=== PATIENT | female | born 1985 | race Caucasian/White ===

== ENCOUNTER 2016-11-09 20:31 | Emergency (ER) | payer OTHER ==
[~2016-11-09] VITALS: Ht 162.6 cm; Wt 103.0 kg
[2016-11-09 20:34] VITALS: Ht 162.6 cm; Wt 103.0 kg
[2016-11-09] MEDS ORDERED: ACETAMINOPHEN 500 MG TAB PO STA (21:43)
[2016-11-09] MEDS ORDERED: FAMOTIDINE 20 MG TAB PO ONE (22:00)
[2016-11-09 22:19] LABS: BASOPHIL # 0.1 10^3/ul (0.0-0.1); BASOPHILS % 0.4 % (0.0-2.0); EOSINOPHILS # 0.1 10^3/ul (0.0-0.5); HEMATOCRIT 37.1 % (37.0-47.0); HEMOGLOBIN 12.4 g/dl (12.0-16.0); LYMPHOCYTES # 2.8 10^3/ul (0.8-2.9); LYMPHOCYTES % 18.4 % (15.0-51.0); MEAN CORPUSCULAR HEMOGLOBIN 26.7 pg (29.0-33.0); MEAN CORPUSCULAR HGB CONC 33.3 g/dl (32.0-37.0); MEAN CORPUSCULAR VOLUME 80.1 fl (82.0-101.0); MEAN PLATELET VOLUME 7.7 fl (7.4-10.4); MONOCYTE # 0.8 10^3/ul (0.3-0.9); MONOCYTES % 5.5 % (0.0-11.0); NEUTROPHIL # 11.2 10^3/ul (1.6-7.5); NEUTROPHILS % 74.7 % (39.0-77.0); PLATELET COUNT 264 10^3/UL (140-440); RED BLOOD COUNT 4.64 10^6/ul (4.20-5.40); RED CELL DISTRIBUTION WIDTH 14.1 % (11.5-14.5); UNCORRECTED WBC 15.1 10^3/ul (4.8-10.8); WHITE BLOOD COUNT 15.1 10^3/ul (4.8-10.8)
[2016-11-09 22:20] LABS: CONDITION 1; LH ANALYZER COMMENTS 1
[2016-11-09 22:28] LABS: ALBUMIN 3.6 g/dl (3.3-4.9)
[2016-11-09 22:29] LABS: POTASSIUM 3.8 mmol/L (3.5-5.1)
[2016-11-09 22:31] LABS: BILIRUBIN,INDIRECT 0.1 mg/dl (0-1.1); BILIRUBIN,TOTAL 0.1 mg/dl (0.2-1.3); CREATININE 0.49 mg/dl (0.44-1.00)
[2016-11-09 22:32] LABS: ALBUMIN/GLOBULIN RATIO 0.92; CALCIUM 9.1 mg/dl (8.4-10.2); TOTAL PROTEIN 7.5 g/dl (6.1-8.1)
--- NOTE | 2016-11-09 22:33 | RADRPT ---
PROCEDURE: ULTRASOUND OBSTETRICAL CLINICAL INDICATION: 30-year-old female with abdominal pain. TECHNIQUE: Multiple sonographic images of the pelvis were obtained. The images were reviewed on a PACS workstation. COMPARISON: No prior studies are available for comparison. FINDINGS: The cervix is not well visualized. There is a single viable intrauterine gestation. Cardiac activit y is present with 143 beats per minute. There is a variable presentation. Measurements were made in order to determine age. The results are as follows: BPD = 3.44 cm, HC = 12.93 cm, AC = 11.19 cm, FL = 2.03 cm. This yields and estimated gestational ag e of approximately 16 weeks 4 days. The estimated date of delivery is April 22, 2017. The EFW = 161 +/- 24 g. The GP is less than 3%. The placenta is anterior. There is no evidence for an abruption or placenta previa. There is an adequate amount of amniotic fluid was maximal vertical pocket of 5.8 cm. IMPRESSION: Single viable intrauterine gestation of approximately 16 weeks 4 days. The estimated date of delive ry is April 22, 2017. .Gordon Arango MD, Date Time Electronically viewed and signed by .Gordon Arango MD, on 11/09/2016 22:33 .M/
--- NOTE | 2016-11-09 22:49 | ERD ---
ER Documentation Chief Complaint Date/Time DATE: 11/09/16 TIME: 22:48 Chief Complaint 16 wks , pelvic pain and upper abd pain 20 min. ago HPI This is a 30-year-old female who presents the emergency department today complaining of upper abdominal pain that started earlier today. Patient states the pain is getting worse. States she has a history of a gallbladder removal in 2003. States she is approximately 17 weeks . States she has not taken any medication for the pain. Denies any nausea vomiting, fevers or chills. ROS All systems reviewed and are negative except as per history of present illness. Medications Home Meds Active Scripts Famotidine* (Pepcid*) 20 Mg Tablet, 20 MG PO BID for 10 Days, TAB Prov:ARIS HENLEY PA-C 11/10/16 Acetaminophen* (Tylophen*) 500 Mg Capsule, 1 CAP PO Q6H Y for PAIN AND OR ELEVATED TEMP, #30 CAP Prov:ARIS HENLEY PA-C 11/10/16 Allergies Allergies: Coded Allergies: No Known Allergy (Unverified , 11/09/16) PMhx/Soc History of Surgery: Yes (GALLBLADDER REMOVED) Anesthesia Reaction: No Hx Neurological Disorder: No Hx Respiratory Disorders: No Hx Cardiac Disorders: No Hx Psychiatric Problems: No Hx Miscellaneous Medical Probl: No Physical Exam Vitals Vital Signs Date Time Temp Pulse Resp B/P Pulse Ox O2 Delivery O2 Flow Rate FiO2 11/09/16 20:34 98.3 82 20 123/57 99 Physical Exam Const: obese, NAD Head: Atraumatic Eyes: Normal Conjunctiva ENT: Normal External Ears, Nose and Mouth. Neck: Full range of motion..~ No meningismus. Resp: Clear to auscultation bilaterally Cardio: Regular rate and rhythm, no murmurs Abd: Soft, diffuse upper abdominal pain non distended. Normal bowel sounds. No right lower quadrant pain. No left lower quadrant pain. Skin: No petechiae or rashes Back: No midline or flank tenderness Ext: No cyanosis, or edema Neur: Awake and alert Psych: Normal Mood and Affect Result Diagram: 11/09/160 11/09/16 2200 Results 24 hrs Laboratory Tests Test 11/09/16 22:00 11/09/16 22:29 Alanine Aminotransferase (ALT/SGPT) 19IU/L Albumin 3.6g/dl Albumin/Globulin Ratio 0.92 Alkaline Phosphatase 51IU/L Anion Gap 15 Aspartate Amino Transf (AST/SGOT) 16IU/L Basophils # 0.110^3/ul Basophils % 0.4% Beta HCG, Quantitative 63733.0mIU/ml Blood Morphology Comment Blood Urea Nitrogen 9mg/dl Calcium Level 9.1mg/dl Carbon Dioxide Level 24mmol/L Chloride Level 105mmol/L Creatinine 0.49mg/dl Direct Bilirubin 0.00mg/dl Eosinophils # 0.110^3/ul Eosinophils % 1.0% Globulin 3.90g/dl Glucose Level 85mg/dl Hematocrit 37.1% Hemoglobin 12.4g/dl Indirect Bilirubin 0.1mg/dl Lipase 157U/L Lymphocytes # 2.810^3/ul Lymphocytes % 18.4% Mean Corpuscular Hemoglobin 26.7pg Mean Corpuscular Hemoglobin Concent 33.3g/dl Mean Corpuscular Volume 80.1fl Mean Platelet Volume 7.7fl Monocytes # 0.810^3/ul Monocytes % 5.5% Neutrophils # 11.210^3/ul Neutrophils % 74.7% Nucleated Red Blood Cells # 0.010^3/ul Nucleated Red Blood Cells % 0.0/100WBC Platelet Count 45840^3/UL Potassium Level 3.8mmol/L Red Blood Count 4.6410^6/ul Red Cell Distribution Width 14.1% Sodium Level 140mmol/L Total Bilirubin 0.1mg/dl Total Protein 7.5g/dl White Blood Count 15.110^3/ul Urine Bilirubin NEGATIVE Urine Clarity CLEAR Urine Color LT. YELLOW Urine Glucose NEGATIVE% Urine Hemoglobin NEGATIVE Urine Ketones NEGATIVE Urine Leukocyte Esterase NEGATIVE Urine Nitrite NEGATIVE Urine Specific [place] 1.015 Urine Total Protein NEGATIVE Urine Urobilinogen 0.2 E.U./dL Urine pH 7.0 Current Medications Medications (Trade) Dose Ordered Sig/[place] Route PRN Reason Start Time Stop Time Status Last Admin Dose Admin Famotidine (Pepcid) 20 mg ONCE ONCE PO 11/09/16 22:00 11/09/16 22:01 DC 11/09/16 22:33 Acetaminophen (Tylenol Tab) 500 mg ONCE STAT PO 11/09/16 21:43 11/09/16 21:47 DC 11/09/16 22:33 Patient: CHULA ADAMS : 1985 Age: 30 Sex: F MR #: [id number] DOS: 11/09/16 0000 Ordering MD: ARIS HENLEY PA-C Location: [facility] Room/Bed: PROCEDURE: ULTRASOUND OBSTETRICAL CLINICAL INDICATION: 30-year-old female with abdominal pain. TECHNIQUE: Multiple sonographic images of the pelvis were obtained. The images were reviewed on a PACS workstation. COMPARISON: No prior studies are available for comparison. FINDINGS: The cervix is not well visualized. There is a single viable intrauterine gestation. Cardiac activity is present with 143 beats per minute. There is a variable presentation. Measurements were made in order to determine age. The results are as follows: BPD = 3.44 cm, HC = 12.93 cm, AC = 11.19 cm, FL = 2.03 cm. This yields and estimated gestational age of approximately 16 weeks 4 days. The estimated date of delivery is April 22, 2017. The EFW = 161 +/- 24 g. The GP is less than 3%. The placenta is anterior. There is no evidence for an abruption or placenta previa. There is an adequate amount of amniotic fluid was maximal vertical pocket of 5.8 cm. IMPRESSION: Single viable intrauterine gestation of approximately 16 weeks 4 days. The estimated date of delivery is April 22, 2017. .Gordon Arango MD, MD Date Time Electronically viewed and signed by .Gordon Arango MD, MD on 11/09/2016 22:33 .M/ CC: ARIS HENLEY PA-C DIAGNOSTIC IMAGING REPORT Patient: CHULA ADAMS : 1985 Age: 30 Sex: F MR #: [id number] DOS: 11/09/16 0000 Ordering MD: ARIS HENLEY PA-C Location: [facility] Room/Bed: PROCEDURE: US Abdomen (right upper quadrant). CLINICAL INDICATION: Abdominal pain. TECHNIQUE: Multiple real-time longitudinal and transverse images of the right upper quadrant of the abdomen were acquired utilizing a curved array transducer. Images were reviewed on a high-resolution PACS workstation. COMPARISON: None FINDINGS: The liver is normal in size and echogenicity without focal mass or intrahepatic biliary dilatation. The gallbladder surgically absent. No intra or extrahepatic biliary dilatation is seen. The common bile duct measures 3.4 mm in maximal dimension. The pancreas is not well visualized due to overlying bowel gas. No free fluid is identified. The right kidney measures 10.4 cm in length. There is normal echogenicity within the right kidney. There is no perinephric fluid collection. No hydronephrosis, mass, or calculus is seen. IMPRESSION: 1. Prior cholecystectomy. 2. The pancreas is not well visualized. 3. Otherwise unremarkable right upper quadrant ultrasound. RPTAT: HFN .Kar Melo MD, MD Date Time Electronically viewed and signed by .Kar Melo MD, MD on 11/09/2016 22: 53 .N/ CC: ARIS HENLEY PA-C Procedures/[facility] This 30-year-old female who presents to the emergency department today complaining of upper abdominal pain that started earlier this evening. Given the patient is approximately 17 weeks I did obtain a complete OB exam. I also obtained a abdominal ultrasound. Laboratory work shows an elevated white blood cell count of 15.1. This may be reactive. She is not anemic. Her platelet or within normal limits. Her electrolytes are within normal limits. Her lipase is within normal limits. Her liver function is within normal limits. UA is negative for infection. Rh status A positive Beta Quant hCG 46757.0 Ultrasound abdomen right upper quadrant shows prior cholecystectomy. There is no hydronephrosis, mass or calculus seen. The common bile duct measures 3.4 mm in maximal dimension. There is no intra-articular extrahepatic biliary dilation seen. Gallbladder is surgically absent. Second trimester ultrasound shows a single viable intrauterine gestation of approximately 16 weeks and 4 days. With an estimated delivery date of 2006. There is no evidence for placental abruption or placenta previa. There is adequate amount of amniotic fluid. There is no cardiac activity present with 143 bpm. Patient was given Pepcid and Tylenol here in the emergency department. Symptoms improved. Patient's abdominal pain may be related to her and present on her diaphragm or possibly related to epigastric pain and gastritis. She has no lower abdominal pain or pelvic pain and low suspicion for any acute abdomen at this time. Discussed the case with Dr. Huertas and he has recommended the patient return in 8 hours for a recheck if no improvement in symptoms. Patient was sent home with a prescription for Tylenol and Motrin and instructed to follow-up with her primary care physician or [employer]. At this time the patient is stable for discharge and outpatient management. Patient should follow up with their PCP in the next 1-2 days. They may return to the emergency department sooner for any persistent or worsening of symptoms. Patient understood and agreed with the plan. Departure Diagnosis: Primary Impression: Abdominal pain during Trimester: second trimester Qualified Code: O26.892 - Abdominal pain during , second trimester Condition: ARIS Villar PA-C Nov 09, 2016 22:48
--- NOTE | 2016-11-09 22:53 | RADRPT ---
PROCEDURE: US Abdomen (right upper quadrant). CLINICAL INDICATION: Abdominal pain. TECHNIQUE: Multiple real-time longitudinal and transverse images of the right upper quadrant of th e abdomen were acquired utilizing a curved array transducer. Images were reviewed on a high-resoluti on PACS workstation. COMPARISON: None FINDINGS: The liver is normal in size and echogenicity without focal mass or intrahepatic biliary dilatation. The gallbladder surgically absent. No intra or extrahepatic biliary dilatation is seen. The commo n bile duct measures 3.4 mm in maximal dimension. The pancreas is not well visualized due to overly ing bowel gas. No free fluid is identified. The right kidney measures 10.4 cm in length. There is normal echogenicity within the right kidney. There is no perinephric fluid collection. No hydronephrosis, mass, or calculus is seen. IMPRESSION: 1. Prior cholecystectomy. 2. The pancreas is not well visualized. 3. Otherwise unremarkable right upper quadrant ultrasound. RPTAT: HFN .Kar Melo MD, Date Time Electronically viewed and signed by .Kar Melo MD, MD on 11/09/2016 22:53 .N/
[2016-11-09 23:53] LABS: ADD UMIC NO; URINE BILIRUBIN (Dip) NEGATIVE (NEGATIVE); URINE BLOOD (Dip) NEGATIVE (NEGATIVE); URINE COLOR LT. YELLOW (YELLOW); URINE GLUCOSE (Dip) NEGATIVE (NEGATIVE); URINE KETONES (Dip) NEGATIVE (NEGATIVE); URINE LEUKOCYTE ESTERASE (Dip) NEGATIVE (NEGATIVE); URINE NITRITE (Dip) NEGATIVE (NEGATIVE); URINE TOTAL PROTEIN (Dip) NEGATIVE (NEGATIVE); URINE UROBILINOGEN (Dip) 0.2 E.U./dL (0.1-1.0)
[2016-11-10] MEDS ORDERED: ACET500C5 PO (00:36)
[2016-11-10] MEDS ORDERED: FAMO-18 PO (00:37)
== END 2016-11-10 00:45 | disposition home or self-care (01) ==
LOC: FTE 20:31
DX: O26.892 Other specified pregnancy related conditions, second trimester (principal); R10.84 Generalized abdominal pain; R10.2 Pelvic and perineal pain; Z3A.16 16 weeks gestation of pregnancy
CPT/HCPCS: 36415; 76705; 76805; 80053; 81003; 83690; 84702; 85025; 86900; 86901; Z7502; Z7610

== ENCOUNTER 2017-03-15 14:35 | Emergency (ER) | payer SELFPAY ==
[~2017-03-15] VITALS: Ht 154.9 cm; Wt 110.0 kg
[~2017-03-15 14:35] MED LIST: ACET500C5 PO; FAMO-18 PO
[2017-03-15 14:38] VITALS: Ht 154.9 cm; Wt 110.0 kg
--- NOTE | 2017-03-15 15:00 | QN ---
Documentation Comment Medical screening exam initiated. The patient checked in the emergency department for numbness and tingling. However Dr. Silvestre then called and said he did not want the patient emergency department he wanted the patient in the OB triage area. The patient then eloped and went to OB triage. The patient should be considered elopement and not a left without being seen. The patient could return to the ER for any worsening symptoms. PEEWEE VELASQUEZ MD March 15, 2017 15:00
[2017-03-15] MEDS ORDERED: PRENAT PO (15:18)
== END 2017-03-15 15:55 | disposition left against medical advice (07) ==
LOC: E/R 14:35
DX: R20.0 Anesthesia of skin (principal); R20.2 Paresthesia of skin
CPT/HCPCS: 99282

== ENCOUNTER 2017-03-15 15:00 | Inpatient (IN) | payer OTHER ==
[~2017-03-15] VITALS: Ht 157.5 cm; Wt 111.0 kg
[2017-03-15 15:18] VITALS: Ht 157.5 cm; Wt 111.0 kg
[2017-03-15] MEDS ORDERED: PRENAT PO (15:18)
[2017-03-15 15:19] VITALS: BP 118/67; PULSE 89; RESP 18
[2017-03-15] MEDS ORDERED: TERBUTALINE 1 MG/ML INJ SC PRN (16:30)
[2017-03-15] MEDS ORDERED: LACTATED RINGER'S 1,000 ML IV SCH (16:47)
[2017-03-15 16:53] LABS: ADD UMIC YES; URINE BILIRUBIN (Dip) NEGATIVE (NEGATIVE); URINE BLOOD (Dip) TRACE (NEGATIVE); URINE COLOR LT. YELLOW (YELLOW); URINE GLUCOSE (Dip) NEGATIVE (NEGATIVE); URINE KETONES (Dip) NEGATIVE (NEGATIVE); URINE LEUKOCYTE ESTERASE (Dip) NEGATIVE (NEGATIVE); URINE NITRITE (Dip) NEGATIVE (NEGATIVE); URINE TOTAL PROTEIN (Dip) NEGATIVE (NEGATIVE); URINE UROBILINOGEN (Dip) 0.2 E.U./dL (0.1-1.0)
[2017-03-15 17:01] LABS: ADD SCAN DIFF NO; BASOPHILS % 0.2 % (0.0-2.0); EOSINOPHILS # 0.2 10^3/ul (0.0-0.5); EOSINOPHILS % 1.3 % (0.0-7.0); HEMATOCRIT 39.4 % (37.0-47.0); HEMOGLOBIN 12.9 g/dl (12.0-16.0); LYMPHOCYTES # 2.5 10^3/ul (0.8-2.9); LYMPHOCYTES % 20.7 % (15.0-51.0); MEAN CORPUSCULAR HEMOGLOBIN 26.2 pg (29.0-33.0); MEAN CORPUSCULAR HGB CONC 32.7 g/dl (32.0-37.0); MEAN CORPUSCULAR VOLUME 79.9 fl (82.0-101.0); MEAN PLATELET VOLUME 9.1 fl (7.4-10.4); MONOCYTE # 0.8 10^3/ul (0.3-0.9); MONOCYTES % 6.6 % (0.0-11.0); NEUTROPHIL # 8.5 10^3/ul (1.6-7.5); NEUTROPHILS % 70.5 % (39.0-77.0); PLATELET COUNT 281 10^3/UL (140-415); RED BLOOD COUNT 4.93 10^6/ul (4.20-5.40); RED CELL DISTRIBUTION WIDTH 15.2 % (11.5-14.5); WHITE BLOOD COUNT 12.1 10^3/ul (4.8-10.8)
[2017-03-15 17:10] LABS: BACTERIA,URINE RARE; SQUAMOUS EPITHELIAL CELL,UR RARE; URINE RBCS 0-2 /HPF (0)
[2017-03-15 17:17] LABS: PROTIME 13.2 Sec (12.2-14.2)
[2017-03-15 17:18] LABS: PARTIAL THROMBOPLASTIN TIME 29.5 Sec (25.0-35.0)
[2017-03-15 17:19] LABS: ALBUMIN 3.3 g/dl (3.3-4.9)
[2017-03-15 17:20] LABS: POTASSIUM 3.8 mmol/L (3.5-5.1)
[2017-03-15 17:22] LABS: ALBUMIN/GLOBULIN RATIO 0.82; BILIRUBIN,INDIRECT 0.3 mg/dl (0-1.1); BILIRUBIN,TOTAL 0.3 mg/dl (0.2-1.3); CREATININE 0.43 mg/dl (0.44-1.00); TOTAL PROTEIN 7.3 g/dl (6.1-8.1)
[2017-03-15 17:23] LABS: CALCIUM 9.1 mg/dl (8.4-10.2); URIC ACID 4.2 mg/dl (3.1-7.9)
--- NOTE | 2017-03-15 17:24 | QN ---
Documentation Comment with best dates estimated gestational age is 34 weeks 4-5 days complaining of headache abdominal pain pelvic pressure and contraction recommended IV hydration terbutaline, steroids biophysical profile and estimated weight, plan pending imaging and lab results, her blood pressure is not elevated she has no blurry vision or epigastric pain. DESIREE RIGGINS MD March 15, 2017 17:24
--- NOTE | 2017-03-15 17:26 | RADRPT ---
PROCEDURE: US OB biophysical profile. CLINICAL INDICATION: evaluation, contractions TECHNIQUE: Multiple sonographic images of the pelvis were obtained. The images were reviewed on a PACS workstation. COMPARISON: No prior studies are available for comparison. FINDINGS: There is a single viable intrauterine gestation. Cardiac activity is present with 126 beats per min [place]. There is a vertex presentation. The placenta is anterior. There is no evidence of placental abruption. There is a mildly low amount of amniotic fluid with an STONEY = 7.2 cm. Biophysical profile: movement 2/2 tone 2/2. breathing 2/2 STONEY 2/2 Total 06/06 RPTAT: AA . IMPRESSION: Normal biophysical profile. Cephalic presentation. Mildly low STONEY of 7.2 cm. Physician Roberta Date Time Electronically viewed and signed by Physician Roberta on 03/15/2017 17:26 /
--- NOTE | 2017-03-15 17:28 | RADRPT ---
PROCEDURE: Obstetrical ultrasound CLINICAL INDICATION: CONTRACTIONS TECHNIQUE: Multiple sonographic images of the pelvis were obtained. The images were reviewed on a PACS workstation. COMPARISON: None FINDINGS: The cervix is not well visualized. There is a single viable intrauterine gestation. Cardiac activity is present with 129 beats per minute. There is a vertex presentation. The placenta is anterior. There is no evidence for an abruption or placenta previa. There is a mildly low amount of amniotic fluid with an STONEY = 7.2 cm. Measurements were made in order to determine age. The results are as follows (cm): BPD =8.57 HC =31.00 AC =33.05 FL =7.00 Estimated gestational age by ultrasound of approximately 35 weeks, 4 days. The estimated date of delivery by ultrasound is 04/15/2017. Estimated gestational age by LMP of approximately 36 weeks, 0 days. The estimated date of delivery by LMP is 04/12/2017. EFW = 2865 grams (55th percentile) IMPRESSION: Single viable intrauterine gestation of approximately 35 weeks, 4 days . The estimated date of delivery is 04/15/2017 . Dating by ultrasound is within 3 days of dating by LMP. Mildly low STONEY of 7.2 cm. Cephalic presentation. Estimated weight is in the 55th percentile. RPTAT: EE Physician Roberta Date Time Electronically viewed and signed by Physician Roberta on 03/15/2017 17:28 /
[2017-03-15] MEDS ORDERED: ACETAMINOPHEN 325 MG TAB PO ONE (18:00)
[2017-03-15] MEDS ORDERED: MAGNESIUM SULFATE 20 GM/500 ML 500 ML IV SCH (19:29)
[2017-03-15] MEDS ORDERED: CA GLUCONATE (GM) 10% 10ML INJ IV PRN (19:30)
[2017-03-15] MEDS ORDERED: CARBOPROST 250 MCG INJ IM PRN (19:30)
[2017-03-15] MEDS ORDERED: MAGNESIUM SULFATE 4 GM/100 ML 100 ML IV SCH (19:30)
[2017-03-15] MEDS ORDERED: METHYLERGONOVINE 0.2 MG INJ IM PRN (19:30)
[2017-03-15] MEDS ORDERED: MISOPROSTOL 200 MCG TAB PR PRN (19:30)
[2017-03-15] MEDS ORDERED: OXYTOCIN 30 UNITS/LR 500 ML IV SCH (19:30)
[2017-03-15] MEDS ORDERED: CLINDAMYCIN 900 MG/D5W (PMX) 50 ML IV SCH (19:30)
[2017-03-15] MEDS ORDERED: OXYTOCIN 30 UNITS/LR 500 ML IV PRN (19:30)
[2017-03-15] MEDS ORDERED: CEFAZOLIN 2 GM/50 ML (PMX) 50 ML IV SCH (19:30)
--- NOTE | 2017-03-15 19:48 | HP ---
Date/Time of Note Date/Time of Note DATE: 03/15/17 TIME: 19:40 OB - History Hx of Present Free Text/Dictation Patient is a 31-year-old female 2 13 with at 33 weeks by 5 weeks ultrasound with care with Dr. iSlvestre. She presented due to persistent new headache in the left side of the head. Patient rates her headaches 7/10. She reports had blindness about a week ago in the left eye and resolved. She is currently complaining of blurred vision in the left eye as well. She denies any nausea or vomiting. She denies any prior similar headache. She reports has a history of migraine headache but her headache was different than current headache. She denies any epigastric pain right , upper quadrant pain. She denies any neurological problem in the past. records reviewed. She was noted to have about 30-35 pound weight gain during current . She gained weight about 13 pounds in the last 6 weeks. She also complained of swelling of face and hands. Her blood pressure was noted to be normal range. Her PIH panels were normal. She also complains of numbness of the left side of the face as well. Her pain after Tylenol decreased from 7/10-4/10. Patient had some contractions that currently resolved after she received a dose of terbutaline She still feels some cramps. Patient denies any prior history of preeclampsia in prior pregnancies. Partner in this is the same as prior pregnancies. Patient has a history of 1 due to failure to progress. Patient was noted to have a still irregular contractions and feel discomfort. NSC category 1 Care: Good Care Ultrasounds: Normal mid trimester US Obstetrical Complications: Other (obseity, excess weight again during current .) Other Concerns: Maternal obesity complicating Past Family/Social History * Past Medical, Surgical, Family and Obstetric Histories reviewed from chart. OB Admission Exam Vital Signs Vital Signs Vital Signs Date Time Temp Pulse Resp B/P Pulse Ox O2 Delivery O2 Flow Rate FiO2 03/15/17 15:19 98.0 89 18 118/67 98 Room Air Physical Exam HEENT: WNL Heart: Rhythm Normal Lungs: Clear Abdomen: WNL Reflexes: Normal Effacement: 0% Station: -2 Membranes: Intact Accelerations: Accelerations Present Decelerations: Early Decelerations Varibility: Moderate Contractions on Admission: < 5 Minutes Apart Intensity: Mild Last 72 hours Lab Results CBC & BMP 03/15/17 16:45 Liver Function Test 03/15/17 16:45 Alanine Aminotransferase (ALT/SGPT) 20 Albumin 3.3 Alkaline Phosphatase 150 H Aspartate Amino Transf (AST/SGOT) 14 L Direct Bilirubin 0.00 Total Protein 7.3 OB Assessment/Plan Other Assessment: IUP at 33 weeks , 3 days by 5 weeks ultrasound contractions, History of delivery 2. Patient has risk for delivery in current History of section Persistent new onset headache, one side blurred vision and blindness in the left side. New headache. Numbnes of the left side of the face. BPs are all normal as well as her labs. Symptoms are more consistent with migraine headache although per patient the type of headache is different than her usual migraine headaches Does not meet the typical criteria for preclampsia based on BP and proteinuria. We will continue to monitor the blood pressure closely. Will consider checking the blood pressure in different side extremities as well as lower extremity, and will watch it closely Due to presence of regular constant symptomatic contractions in the patient's history of delivery, consider starting tocolysis with magnesium, it would also potentially help with the patient migraine headache as well. Consider neural neurology consult Monitor the patient closely steroids to be started MAURICE ALMANZA MD March 15, 2017 19:48
[2017-03-15] MEDS ORDERED: ACETAMINOPHEN 1000MG/100ML IV 100 ML IVPB ONE (20:30)
[2017-03-15] MEDS: BETAMET NA PHOS/AC(6 MG/ML) 5ML INJ IM SCH (20:51)
[2017-03-15] MEDS: LACTATED RINGER'S 1,000 ML IV SCH (21:41)
[2017-03-15] MEDS: MAGNESIUM SULFATE 20 GM/500 ML 500 ML IV SCH (21:48)
[2017-03-16] MEDS ORDERED: MEPERIDINE 50 MG INJ IV ONE (02:00)
[2017-03-16] MEDS ORDERED: hydrOXYzine HCL 100 MG INJ IM ONE (02:00)
[2017-03-16] MEDS: MAGNESIUM SULFATE 20 GM/500 ML 500 ML IV SCH ×3 (04:37→21:45)
[2017-03-16] MEDS ORDERED: HYDROCODONE/APAP (10/325) TAB PO PRN (11:00)
[2017-03-16] MEDS: LACTATED RINGER'S 1,000 ML IV SCH (12:05)
--- NOTE | 2017-03-16 14:49 | CONS ---
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 Recommend ruling out small right sided midbrain infarction. Obtain MRI Brain w/o contrast, MRA Head/Neck without contrast maintain normotensive blood pressure maintain euglycemia continue pain management for headaches will follow up on imaging w further recommendations Problems: Consultation Date/Type/Reason Admit Date/Time March 15, 2017 at 17:45 Date of Consultation: March 16, 2017 Type of Consultation: Neurology Reason for Consultation migraine headaches blurred vision Hx of Present Illness 31 year old female at 33 weeks admitted with new onset persistent headache involving left side of her head with blurred vision that began this past Monday. She has a history of migraines since young age had been taking Excedrin and Downey for management of symptoms. During was taking tylenol and norco. This past monday she recalls getting into an argument with her son and developed acute onset of left sided headache described as severe with left eye blurred vision, she described seeing shadows and has not completely gained back vision in her left eye. She denies any diplopia, no nausea or vomiting, no neck pain or stiffness, no fevers, she does admit to decreased sensation on left side of her face and her left arm. She also experienced a tingling sensation in her left arm. She denies history of preeeclampsia in prior pregnancies, has no history of similar events in the past. Since admission blood pressure and glucose are normal. She received IV tylenol, and IV Demerol for COURTNEY management. headache blurred vision parasthesias left arm Past Surgical History 1 prior Social History Alcohol Use: none Smoking Status: Never smoker Exam/Review of Systems Vital Signs Vitals Vital Signs Date Time Temp Pulse Resp B/P Pulse Ox O2 Delivery O2 Flow Rate FiO2 03/15/17 15:19 98.0 89 18 118/67 98 Room Air Intake and Output 03/15/17 03/15/17 03/16/17 14:59 22:59 06:59 Intake Total 1200 ml 1180.0 ml Output Total 300 ml 1900 ml Balance 900 ml -720.0 ml Exam Constitutional: alert, oriented, well developed Psych: nl mood/affect Head: atraumatic, normocephalic Eyes: PERRL, nl lids, other (disconjugate gaze, able to abduct and adduct in all directions however in upgaze the left eye appears exodeviated no nystagmus with skew deviation suggestive of partial third nerve palsy) Neurological: DTR's symmetric, nl mental status, nl speech, nl strength, numbness (decreased sensation to left face and left arm compared to right, no motor weakness ), other (decreased sensation to left face, left arm compared to right face and arm, visual acuity can only see fingers up to 6 inches away) Results Result Diagram: 03/15/17 1645 03/15/17 1645 Results 24 hrs Laboratory Tests Test 03/15/17 15:00 03/15/17 16:45 03/16/17 00:25 03/16/17 05:42 Urine Color LT. YELLOW Urine Clarity CLEAR Urine pH 6.0 Urine Specific [place] <=1.005 L Urine Ketones NEGATIVE Urine Nitrite NEGATIVE Urine Bilirubin NEGATIVE Urine Urobilinogen 0.2 E.U./dL Urine Leukocyte Esterase NEGATIVE Urine Microscopic RBC 0-2 Urine Microscopic WBC 0-2 Urine Squamous Epithelial Cells RARE Urine Bacteria RARE Urine Hemoglobin TRACE Urine Glucose NEGATIVE Urine Total Protein NEGATIVE White Blood Count 12.1 H Red Blood Count 4.93 Hemoglobin 12.9 Hematocrit 39.4 Mean Corpuscular Volume 79.9 L Mean Corpuscular Hemoglobin 26.2 L Mean Corpuscular Hemoglobin Concent 32.7 Red Cell Distribution Width 15.2 H Platelet Count 281 Mean Platelet Volume 9.1 Neutrophils % 70.5 Lymphocytes % 20.7 Monocytes % 6.6 Eosinophils % 1.3 Basophils % 0.2 Nucleated Red Blood Cells % 0.0 Neutrophils # 8.5 H Lymphocytes # 2.5 Monocytes # 0.8 Eosinophils # 0.2 Basophils # 0.0 Nucleated Red Blood Cells # 0.0 Prothrombin Time 13.2 Prothrombin Time Ratio 1.0 INR International Normalized Ratio 1.00 Activated Partial Thromboplast Time 29.5 Fibrinogen 647.0 H Sodium Level 136 Potassium Level 3.8 Chloride Level 105 Carbon Dioxide Level 20 L Anion Gap 15 Blood Urea Nitrogen 6 L Creatinine 0.43 L Glucose Level 80 Uric Acid 4.2 Calcium Level 9.1 Total Bilirubin 0.3 Direct Bilirubin 0.00 Indirect Bilirubin 0.3 Aspartate Amino Transf (AST/SGOT) 14 L Alanine Aminotransferase (ALT/SGPT) 20 Alkaline Phosphatase 150 H Total Protein 7.3 Albumin 3.3 Globulin 4.00 H Albumin/Globulin Ratio 0.82 Magnesium Level 4.3 H 4.8 H Test 03/16/17 12:05 Magnesium Level 5.4 *H Medications Medications Current Medications Terbutaline Sulfate 0.25 mg 0.25 mg PRN PRN SC PAIN Last administered on 16:42; Admin Dose 0.25 MG; Start 03/15/17 at 16:30 Cefazolin Sodium/ Dextrose 50 ml @ 100 mls/hr ONCE IV ; Start 03/15/17 at 19:30 Clindamycin HCl/ Dextrose 50 ml @ 50 mls/hr ONCE IV ; Start 03/15/17 at 19:30 Oxytocin/Lactated Ringer's 500 ml @ 125 mls/hr ONCE IV ; Start 03/15/17 at 19: 30 Oxytocin/Lactated Ringer's 500 ml @ 0 mls/hr ONCE PRN IV For Hemorrhage Management; Start 03/15/17 at 19:30 Methylergonovine Maleate (Methergine) 0.2 mg ONCE PRN IM VAGINAL BLEEDING; Start 03/15/17 at 19:30 Carboprost Tromethamine (Hemabate) 250 mcg ONCE PRN IM VAGINAL BLEEDING; Start 03/15/17 at 19:30 Misoprostol (Cytotec) 1,000 mcg ONCE PRN [place] VAGINAL BLEEDING; Start 03/15/17 at 19:30 Calcium Gluconate (Ca Gluc) 1 gm ONCE PRN IV FOR MAGNESIUM TOXICITY; Start 03/15 at 19:30 Betamethasone Acet/Betameth SodPhos 12 mg 12 mg Q24H IM Last administered on 20:51; Admin Dose 12 MG; Start 03/15/17 at 20:00; Stop 03/16/17 at 20:01 Lactated Ringer's 1,000 ml @ 75 mls/hr [id number] IV Last administered on 12:05; Admin Dose 75 MLS/HR; Start 03/15/17 at 21:00 Magnesium Sulfate (Magnesium Sulfate 20 Gm/500 ml) 500 ml @ 62.5 mls/hr Q8H IV Last administered on 03/16/17t 13:07; Admin Dose 62.5 MLS/HR; Start 03/15/17 at 21:45 Acetaminophen/ Hydrocodone Bitart ([place] ()) 2 tab Q6H PRN PO ORDER; Start 03/16/17 at 11:00 MAISHA PAPPAS MD March 16, 2017 14:43
--- NOTE | 2017-03-16 18:46 | CONS ---
Date/Time of Note Date/Time of Note DATE: 03/16/17 TIME: 18:38 Assessment/Plan Assessment/Plan Chief Complaint/Hosp Course 31-year-old female, 4 with her fourth at 33 weeks and 5 days by ultrasound who had presented with headaches and now is complaining of some left-sided chest pain. * Patient has no high blood pressure, and while obese she has no other significant risk factors for coronary artery disease. * Chest pain may have been precipitated by elevated magnesium after magnesium therapy for labor Recommendations: 1. Treat chest pain with morphine and Ativan as needed for anxiety 2. Get a d-dimer, and put patient on PPI therapy. 3. Follow-up MRI finding Further interventions per clinical course. Thanks for the Consult. We will follow with you. Problems: Consultation Date/Type/Reason Admit Date/Time March 15, 2017 at 17:45 Date of Consultation: March 16, 2017 Type of Consultation: Medical Reason for Consultation Headaches and chest pain Referring Provider: DESIREE RIGGINS MD ROS: CONSTITUTIONAL: denies fever, chills, weight loss, weight gainrrhea. Eyes: No double or blurred vision or eye pain. CARDIOVASCULAR: no chest discomfort, chest pain, irregular rhythm, tachycardia or diaphoresis. RESPIRATORY: denies cough or shortness of breath or wheezing. GASTROINTESTINAL: The patient denies any nausea, vomiting, diarrhea or abdominal pain. GENITOURINARY: denies dysuria, frequency, urgency or hematuria. MUSCULOSKELETAL: also denies myalgias, arthralgias or edema. SKIN: denies rash or jaundice PSYCHIATRIC: denies history of depression in the past, any suicidal ideation. substance abuse. ENDOCRINE: denies polyuria, polydipsia or hot or cold intolerance. HEMATOLOGIC: denies history of easy bruising, anemia or eczema. Psychological: nl mood/affect Social History Alcohol Use: none Smoking Status: Never smoker Exam/Review of Systems Vital Signs Vitals Vital Signs Date Time Temp Pulse Resp B/P Pulse Ox O2 Delivery O2 Flow Rate FiO2 03/15/17 15:19 98.0 89 18 118/67 98 Room Air Intake and Output 03/15/17 03/15/17 03/16/17 14:59 22:59 06:59 Intake Total 1200 ml 1180.0 ml Output Total 300 ml 1900 ml Balance 900 ml -720.0 ml Exam Constitutional: alert, obese Psych: anxiety Head: normocephalic Eyes: No nl sclera (Mild scleral injection) ENMT: mucosa pink and moist Neck: supple, No jvd Respiratory: clear to auscultation, respirations (Tachypneic), No diminished breath sounds Cardiovascular: No regular rate and rhythm (Tachycardic) Gastrointestinal: other (Gravid nontender) Musculoskeletal: nl extremities to inspection Neurological: lethargic, No focal weakness Skin: rash or lesions (Alert is) Results Result Diagram: 03/15/17 1645 03/15/17 1645 Results 24 hrs Laboratory Tests Test 03/16/17 00:25 03/16/17 05:42 03/16/17 12:05 03/16/17 17:40 Magnesium Level 4.3 H 4.8 H 5.4 *H 5.4 *H Medications Medications Current Medications Terbutaline Sulfate 0.25 mg 0.25 mg PRN PRN SC PAIN Last administered on 16:42; Admin Dose 0.25 MG; Start 03/15/17 at 16:30 Cefazolin Sodium/ Dextrose 50 ml @ 100 mls/hr ONCE IV ; Start 03/15/17 at 19:30 Clindamycin HCl/ Dextrose 50 ml @ 50 mls/hr ONCE IV ; Start 03/15/17 at 19:30 Oxytocin/Lactated Ringer's 500 ml @ 125 mls/hr ONCE IV ; Start 03/15/17 at 19: 30 Oxytocin/Lactated Ringer's 500 ml @ 0 mls/hr ONCE PRN IV For Hemorrhage Management; Start 03/15/17 at 19:30 Methylergonovine Maleate (Methergine) 0.2 mg ONCE PRN IM VAGINAL BLEEDING; Start 03/15/17 at 19:30 Carboprost Tromethamine (Hemabate) 250 mcg ONCE PRN IM VAGINAL BLEEDING; Start 03/15/17 at 19:30 Misoprostol (Cytotec) 1,000 mcg ONCE PRN [place] VAGINAL BLEEDING; Start 03/15/17 at 19:30 Calcium Gluconate (Ca Gluc) 1 gm ONCE PRN IV FOR MAGNESIUM TOXICITY; Start 03/15 at 19:30 Betamethasone Acet/Betameth SodPhos 12 mg 12 mg Q24H IM Last administered on 20:51; Admin Dose 12 MG; Start 03/15/17 at 20:00; Stop 03/16/17 at 20:01 Lactated Ringer's 1,000 ml @ 75 mls/hr [id number] IV Last administered on 12:05; Admin Dose 75 MLS/HR; Start 03/15/17 at 21:00 Magnesium Sulfate (Magnesium Sulfate 20 Gm/500 ml) 500 ml @ 62.5 mls/hr Q8H IV Last administered on 03/16/17 13:07; Admin Dose 62.5 MLS/HR; Start 03/15/17 at 21:45 Acetaminophen/ Hydrocodone Bitart ([place] ()) 2 tab Q6H PRN PO MD ORDER; Start 03/16/17 at 11:00 Procedures Procedures PROCEDURE: US OB biophysical profile. CLINICAL INDICATION: evaluation, contractions TECHNIQUE: Multiple sonographic images of the pelvis were obtained. The images were reviewed on a PACS workstation. COMPARISON: No prior studies are available for comparison. FINDINGS: There is a single viable intrauterine gestation. Cardiac activity is present with 126 beats per minute. There is a vertex presentation. The placenta is anterior. There is no evidence of placental abruption. There is a mildly low amount of amniotic fluid with an STONEY = 7.2 cm. Biophysical profile: movement 2/2 tone 2/2. breathing 2/2 STONEY 2/2 Total 8/8 RPTAT: AA . IMPRESSION: Normal biophysical profile. Cephalic presentation. Mildly low STONEY of 7.2 cm. Physician Roberta Date Time Electronically viewed and signed by Carlos Chan Physician on 03/15/2017 17:26 RA/ CC: DESIREE RIGGINS MD Chest x-ray reviewed and normal EKG shows sinus tachycardia, no ST elevations or depressions. AMANDO AGUDELO March 16, 2017 18:46
[2017-03-16] MEDS ORDERED: morphine 2 MG INJ IV PRN (19:00)
[2017-03-16] MEDS ORDERED: LORAZEPAM 2 MG INJ IV PRN (19:00)
[2017-03-16] MEDS ORDERED: METOCLOPRAMIDE 10 MG INJ IV ONE (19:00)
--- NOTE | 2017-03-16 19:01 | RADRPT ---
PROCEDURE: XR Chest. CLINICAL INDICATION: Shortness of breath. TECHNIQUE: A single portable view of the chest was obtained. COMPARISON: None FINDINGS: The cardiomediastinal silhouette is within normal limits. The lungs and pleural spaces are clear. The soft tissues and osseous structures are unremarkable. IMPRESSION: No acute cardiopulmonary disease. RPTAT: HPNM Physician Nick Date Time Electronically viewed and signed by Miki Card Physician on 03/16/2017 19:01 /
[2017-03-16] MEDS: FAMOTIDINE 20 MG INJ IV SCH ×2 (19:06→21:00)
[2017-03-16] MEDS ORDERED: FUROSEMIDE 20 MG INJ IV ONE (19:30)
[2017-03-16] MEDS: SOD CHLORIDE 0.9% 1,000 ML IV SCH (19:50)
[2017-03-16 20:04] LABS: D-DIMER 2891.56 ng/ml (<460)
[2017-03-16] MEDS: BETAMET NA PHOS/AC(6 MG/ML) 5ML INJ IM SCH (20:32)
[2017-03-16] MEDS ORDERED: morphine 2 MG INJ IV ONE (20:45)
[2017-03-16] MEDS ORDERED: IODIXANOL LOCM 100 ML BTL ONE (22:01)
[2017-03-16] MEDS ORDERED: SOD CHLORIDE 0.9% 100 ML ONE (22:01)
--- NOTE | 2017-03-16 23:29 | RADRPT ---
PROCEDURE: MR Brain without contrast, MRA brain without contrast, MRA neck without contrast. CLINICAL INDICATION: 31-year-old female with disconjugate left 5 days, suspected infarct. TECHNIQUE: An MRI of the brain was performed without contrast utilizing the following sequences: Sagittal T1 weighted, sagittal FLAIR, axial T1, axial FLAIR, axial T2 weighted, axial diffusion weig hted (EPI technique [id number]), axial ADC mapping. MRA head: 3-D [id number] imaging through the ce rebral vasculature with MIP reconstructions. MRA neck: An MRA of the major cervical arteries was pe rformed without contrast utilizing axial 2D time of flight. Source and MIPPED images were reviewed. Images were reviewed on a high-resolution PACS workstation. COMPARISON: No prior studies are available for comparison. FINDINGS: MRI brain: Diffusion weighted sequences demonstrate no evidence of acute lacunar or lobar infarctio n. There is no intracranial hemorrhage, extra-axial fluid collection, mass lesion, midline shift or hydrocephalous. The ventricles, sulci and cisterns are normal in size and configuration. The basal cisterns are patent. The signal intensity is normal throughout the cerebrum, brain stem and cerebe llum. Normal flow voids are visible the proximal intracranial arteries and dural sinuses, indicatin g patency. The midline structures are intact. The cavernous sinuses are symmetric. The visualized orbits are unremarkable. The paranasal sinuses, mastoid air cells and middle ear cavities are normally aerated. The orbits, calvarium and extracranial soft tissues are normal in appearance. MRA head: Anterior circulation: The petrous and cavernous segments of the internal carotid arterie s are normal in appearance. The supraclinoid internal carotid arteries are normal in appearance. T he middle and anterior cerebral arteries as well as their branches are normal. The anterior communi cating artery is patent. The posterior communicating arteries are diminutive, but patent. Posterior circulation: The right vertebral artery is dominant. The basilar artery and its branches are normal in appearance. The posterior cerebral arteries are normal in appearance. There is no a neurysm, hemodynamically significant stenosis or vascular malformation. Limited visualization of th e remaining brain parenchyma is unremarkable. There is no intracranial hemorrhage, mass lesion or h ydrocephalous. MRA neck: The common carotid arteries are patent and normal in caliber. The carotid bulbs appear n ormal, and no hemodynamically significant stenosis is evident within either internal carotid artery. The cervical segments of the internal carotid arteries are normal in appearance. The vertebral arteries are patent and normal in caliber bilaterally. The right vertebral artery is dominant. There is no evidence of vascular stenosis, dissection, aneurysm or occlusion. The visuali zed neck soft tissues are unremarkable. IMPRESSION: 1. Normal MRI of the brain without contrast. No intracranial hemorrhage, mass lesion, infarction o r hydrocephalous. 2. Normal MRA of the head without contrast. No aneurysm, hemodynamically significant stenosis or v ascular malformation. 3. Normal MRA of the neck without contrast. No aneurysm, dissection or hemodynamically significant stenosis. RPTAT: HGAS .Murphy Suarez MD, MD Date Time Electronically viewed and signed by .Murphy Suarez MD, on 03/16/2017 23:29 .S/
--- NOTE | 2017-03-17 00:23 | RADRPT ---
PROCEDURE: CT angiogram chest. CLINICAL INDICATION: Shortness of breath. TECHNIQUE: CT angiogram of the chest was performed utilizing axial images with reconstructions in sagittal and coronal planes following the intravenous administration of 84 cc Visipaque 320 contrast . The administered radiation dose is CTDI 19.8 mGy, DLP 623 mGy-cm. COMPARISON: No pertinent prior examinations are submitted for comparison. FINDINGS: Pulmonary angiogram: There is suboptimal enhancement of the pulmonary arteries. There is minimal r espiratory motion artifact. There is no evidence of large central pulmonary embolus. The examinati on is otherwise nondiagnostic for pulmonary embolus. Aortogram: There is no evidence of aortic dissection or aneurysm. Major branches of the aorta are patent. Chest: There is mild atelectasis within the lung bases. No pleural effusions are seen. The tracheobronchi al tree is unremarkable. Visualized Upper abdomen: Unremarkable. Osseous structures: Unremarkable. IMPRESSION: Nondiagnostic examination for pulmonary embolus due to poor enhancement of the pulmonary arteries. No acute cardiopulmonary findings. RPTAT: HIKT .Shane Song MD, MD Date Time Electronically viewed and signed by .Shane Song MD, on 03/17/2017 00:22 .T/
--- NOTE | 2017-03-17 01:00 | CONS ---
DATE OF ADMISSION: 03/15/2017 DATE OF CONSULTATION: 03/16/2017 HISTORY OF PRESENT ILLNESS: The patient is a 31-year-old who was admitted yesterday with complaint of headache to the left side of the face, which was initiated after she had an argument with her 13- year-old son. She does suffer from migraine, which she states that this is similar to her migraine episodes. However, the difference is that yesterday she experienced some loss of vision on her left eye and then she regained the sight; however, at points she sees dots on the left side. She also complains of some initially apparently back pain with radiation to her lower abdominal pain . However, today when I saw the patient, she has some back pain over the midline of the spine. She has had the midline spine pain since her last when she received the epidural. She is currently on magnesium sulfate for labor and she has been given 1 dose of betamethaso ne. Her blood pressures are completely normal and her preeclampsia labs are normal. PAST MEDICAL HISTORY: Only positive for migraine. She takes Alice for her migraine when they occur . Otherwise, her history is negative. REVIEW OF SYSTEMS: Negative except for what is mentioned above. PHYSICAL EXAMINATION: VITAL SIGNS: Blood pressure currently is 106/72. NEUROLOGIC: Her physical exam, she has sensory feeling everywhere in the face and also she has 5/5 strength on her 4 extremities. BACK: There is no tenderness to palpation over her spine. PELVIC: heart tone is reassuring and contractions are very irregular and essentially very spo radic and infrequent. IMPRESSION: Intrauterine at 33 weeks and 5 days with left-sided facial headache and some change in vision on the left eye. The headache is reminiscent of her previous migraine; however, the change of vision is something new . This headache is not related to or preeclampsia, as her blood pressures are completely nor mal and labs are also normal. Possible labor on magnesium sulfate, status post betamethasone x1. RECOMMENDATIONS: Continue with the magnesium sulfate until tomorrow morning. Neurology has been consulted to evaluate patient for her headache and change in vision. I do recommend to discontinue Demerol and give Alice as needed. Also please notify anesthesiologist at the time of delivery of her back pain. If neurology deems relevant to obtain any imaging from the head at this point, the radiation obtaine d from the studies are minimal and, given the gestational age, the effect on the fetus is also minim al and they should proceed. I sign off. If there are any further questions, please call me for opinion. Dictated By: AMADO RIZO MD ST/NTS Conf#: [id number] DID#: [id number] CC: DESIREE RIGGINS MD;*EndCC*
--- NOTE | 2017-03-17 04:34 | RADRPT ---
PROCEDURE: US bilateral lower extremity venous Doppler CLINICAL INDICATION: Bilateral swelling TECHNIQUE: Multiple sonographic images of the bilateral lower extremity deep venous system was obt ained utilizing grayscale, color-flow, compressive sonography and Doppler imaging with augmentation. COMPARISON: There are no similar studies submitted for comparison. FINDINGS: There is normal compressibility and flow within the left common femoral, superficial femoral, poplit eal, and calf veins. There is normal compressibility and flow within the right common femoral, superficial femoral, popli teal, and calf veins. IMPRESSION: No evidence of DVT within the lower extremities. RPTAT: HIKT .Shane Song MD, MD Date Time Electronically viewed and signed by .Shane Song MD, MD on 03/17/2017 04:34 .T/
--- NOTE | 2017-03-17 04:53 | PN ---
Date/Time of Note Date/Time of Note DATE: 03/17/17 TIME: 04:41 OB Subjective Subjective Subjective feels much better no more chest pain no sob or coughing OB Objective Objective Objective O2sat >95% in room air vss EFM no uterine activities MRI BRAIN NEG CT ANGIOGRAM NON DIAGNOSTIC, clinically patient asymptomatic OB Assessment/Plan Other Assessment: IUP 34w PTL chest pain resolved Other plan: hospitalist is here reevaluate the patient SCOTT SMITH MD March 17, 2017 04:52
[2017-03-17] MEDS ORDERED: ENOXAPARIN 60 MG/0.6 ML SYG SC SCH (05:00)
[2017-03-17] MEDS: MAGNESIUM SULFATE 20 GM/500 ML 500 ML IV SCH (05:45)
[2017-03-17 06:03] LABS: ADD SCAN DIFF NO
[2017-03-17 06:11] LABS: BASOPHILS % 0.1 % (0.0-2.0); HEMATOCRIT 37.1 % (37.0-47.0); LYMPHOCYTES # 1.2 10^3/ul (0.8-2.9); LYMPHOCYTES % 8.6 % (15.0-51.0); MEAN CORPUSCULAR HEMOGLOBIN 26.1 pg (29.0-33.0); MEAN CORPUSCULAR HGB CONC 32.3 g/dl (32.0-37.0); MEAN CORPUSCULAR VOLUME 80.7 fl (82.0-101.0); MONOCYTE # 0.6 10^3/ul (0.3-0.9); MONOCYTES % 4.4 % (0.0-11.0); NEUTROPHILS % 85.9 % (39.0-77.0); PLATELET COUNT 280 10^3/UL (140-415); RED CELL DISTRIBUTION WIDTH 15.4 % (11.5-14.5); WHITE BLOOD COUNT 13.9 10^3/ul (4.8-10.8)
[2017-03-17 06:57] LABS: ALBUMIN 3.3 g/dl (3.3-4.9); ALBUMIN/GLOBULIN RATIO 1.03; BILIRUBIN,INDIRECT 0.5 mg/dl (0-1.1); BILIRUBIN,TOTAL 0.5 mg/dl (0.2-1.3); CALCIUM 8.2 mg/dl (8.4-10.2); CREATININE 0.49 mg/dl (0.44-1.00); POTASSIUM 4.5 mmol/L (3.5-5.1); TOTAL PROTEIN 6.5 g/dl (6.1-8.1)
[2017-03-17] MEDS: SOD CHLORIDE 0.9% 1,000 ML IV SCH (09:07)
[2017-03-17] MEDS: FAMOTIDINE 20 MG INJ IV SCH (09:18)
--- NOTE | 2017-03-17 13:49 | CONS ---
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 MRI of the brain, MR angiogram of the head and MR angiogram of the neck are all normal. She has improved in her symptoms. PLAN: maintain normotensive blood pressure maintain euglycemia continue pain management for headaches No further neurological workup is necessary Sign off now and reconsult if necessary Consultation Date/Type/Reason Admit Date/Time March 15, 2017 at 17:45 Initial Consult Date 03/16/17 Type of Consultation: Medical Reason for Consultation Headache Referring Provider: DESIREE RIGGINS MD 24 HR Interval Summary Free Text/Dictation Her headache has significantly improved. MRI of the brain, MR angiogram of the head and neck are normal. Exam/Review of Systems Vital Signs Vitals Vital Signs Date Time Temp Pulse Resp B/P Pulse Ox O2 Delivery O2 Flow Rate FiO2 03/15/17 15:19 98.0 89 18 118/67 98 Room Air Intake and Output 03/16/17 03/16/17 03/17/17 15:00 23:00 07:00 Intake Total 1252.5 ml 760.0 ml 560 ml Output Total 2500 ml 2050 ml 800 ml Balance -1247.5 ml -1290.0 ml -240 ml Exam Constitutional: alert, oriented, well developed Psych: nl mood/affect, no complaints Head: atraumatic, normocephalic Eyes: EOMI, nl conjunctiva, nl lids, nl sclera ENMT: mucosa pink and moist, nl external ears & nose, nl lips & teeth, nl nasal mucosa & septum Neck: non-tender, supple Respiratory: clear to auscultation, normal air movement Cardiovascular: nl pulses, regular rate and rhythm Gastrointestinal: other (Abdominal ) Musculoskeletal: nl extremities to inspection Extremities: normal pulses 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0 Neutrophils % 85.9 H Lymphocytes % 8.6 L Monocytes % 4.4 Eosinophils % 0.0 Basophils % 0.1 Nucleated Red Blood Cells % 0.0 Neutrophils # 12.0 H Lymphocytes # 1.2 Monocytes # 0.6 Eosinophils # 0.0 Basophils # 0.0 Nucleated Red Blood Cells # 0.0 Sodium Level 134 L Potassium Level 4.5 Chloride Level 109 Carbon Dioxide Level 17 L Anion Gap 13 Blood Urea Nitrogen 7 Creatinine 0.49 Glucose Level 132 # Calcium Level 8.2 L Total Bilirubin 0.5 Direct Bilirubin 0.00 Indirect Bilirubin 0.5 Aspartate Amino Transf (AST/SGOT) 15 Alanine Aminotransferase (ALT/SGPT) 23 Alkaline Phosphatase 149 H Total Protein 6.5 Albumin 3.3 Globulin 3.20 Albumin/Globulin Ratio 1.03 Test 03/17/17 11:45 Troponin I < 0.012 Medications Medications Current Medications Terbutaline Sulfate 0.25 mg 0.25 mg PRN PRN SC PAIN Last administered on t 16:42; Admin Dose 0.25 MG; Start 03/15/17 at 16:30 Cefazolin Sodium/ Dextrose 50 ml @ 100 mls/hr ONCE IV ; Start 03/15/17 at 19:30 Clindamycin HCl/ Dextrose 50 ml @ 50 mls/hr ONCE IV ; Start 03/15/17 at 19:30 Oxytocin/Lactated Ringer's 500 ml @ 125 mls/hr ONCE IV ; Start 03/15/17 at 19: 30 Oxytocin/Lactated Ringer's 500 ml @ 0 mls/hr ONCE PRN IV For Hemorrhage Management; Start 03/15/17 at 19:30 Methylergonovine Maleate (Methergine) 0.2 mg ONCE PRN IM VAGINAL BLEEDING; Start 03/15/17 at 19:30 Carboprost Tromethamine (Hemabate) 250 mcg ONCE PRN IM VAGINAL BLEEDING; Start 03/15/17 at 19:30 Misoprostol (Cytotec) 1,000 mcg ONCE PRN IN VAGINAL BLEEDING; Start 03/15/17 at 19:30 Calcium Gluconate 1 gm 1 gm ONCE PRN IV FOR MAGNESIUM TOXICITY; Start 03/15/17 at 19:30 Magnesium Sulfate (Magnesium Sulfate 20 Gm/500 ml) 500 ml @ 62.5 mls/hr Q8H IV Last administered on 03/16/17 13:07; Admin Dose 62.5 MLS/HR; Start 03/15/17 at 21:45 Acetaminophen/ Hydrocodone Bitart 2 tab 2 tab Q6H PRN PO ORDER; Start at 11:00 Sodium Chloride (NS) 1,000 ml @ 80 mls/hr [id number] IV Last administered on 03/17 09:07; Admin Dose 80 MLS/HR; Start 03/16/17 at 19:00; Stop 03/17/17 at 19: 59 Famotidine (Pepcid Iv) 20 mg BID IV Last administered on 03/17/17 09:18; Admin Dose 20 MG; Start 03/16/17 at 19:00 Morphine Sulfate (morphine) 2 mg Q4H PRN IV pain; Start 03/16/17 at 19:00 Acetaminophen (Tylenol Tab) 650 mg Q6H PRN PO PAIN AND OR ELEVATED TEMP; Start 03/16/17 at 19:00 Lorazepam (Ativan) 1 mg Q8H PRN IV anxiety Last administered on 03/16/17 19:02 ; Admin Dose 1 MG; Start 03/16/17 at 19:00 Enoxaparin Sodium (Lovenox) 120 mg Q12H SC Last administered on 03/17/17 06:13 ; Admin Dose 120 MG; Start 03/17/17 at 05:00 PHUC FITCH MD March 17, 2017 13:49
[2017-03-17] MEDS ORDERED: HYDROCODONE/APAP (10/325) TAB PO PRN (15:30)
[2017-03-17] MEDS ORDERED: morphine 2 MG INJ IV PRN (15:30)
[2017-03-17] MEDS ORDERED: LORAZEPAM 2 MG INJ IV PRN (15:30)
[2017-03-17] MEDS ORDERED: ENOXAPARIN 60 MG/0.6 ML SYG SC ONE (17:00)
--- NOTE | 2017-03-17 17:03 | PN ---
Date/Time of Note Date/Time of Note DATE: 03/17/17 TIME: 16:59 Assessment/Plan VTE Prophylaxis VTE Prophylaxis Intervention: LMWH Lines/Catheters IV C[facility]ter Type ([facility] Peripheral IV Assessment/Plan Chief Complaint/Hosp Course 31-year-old female, 4 with her fourth at 33 weeks and 5 days by ultrasound who had presented with headaches and now is complaining of some left-sided chest pain. * Patient has no high blood pressure, and while obese she has no other significant risk factors for coronary artery disease. * Chest pain may have been precipitated by elevated magnesium after magnesium therapy for labor * patient much improved. Chest pain likely secondary to magnesium therapy. No further intervention required * Headache also resolved, likely migraine headaches as per history, detailed neurologic workup negative, no further intervention Recommendations: #1. DC IV fluids, reduce Lovenox to therapeutic doses #2. Ambulate patient to evaluate for dizziness versus recurrence of symptoms. If patient remains stable after a few hours, patient is cleared for discharge from a medical standpoint. Further interventions per clinical course. Thanks for the Consult. Problems: Subjective 24 Hr Interval Summary Free Text/Dictation Patient was seen earlier today, reported significant improvement in shortness of breath, denied chest pain, reported feeling much better. Exam/Review of Systems Vital Signs Vitals Vital Signs Date Time Temp Pulse Resp B/P Pulse Ox O2 Delivery O2 Flow Rate FiO2 03/15/17 15:19 98.0 89 18 118/67 98 Room Air Intake and Output 03/16/17 03/16/17 03/17/17 15:00 23:00 07:00 Intake Total 1252.5 ml 760.0 ml 560 ml Output Total 2500 ml 2050 ml 800 ml Balance -1247.5 ml -1290.0 ml -240 ml Results Result Diagram: 03/17/17 0536 03/17/17 0536 Results 24 hrs Laboratory Tests Test 03/16/17 17:40 03/16/17 19:15 03/17/17 00:01 03/17/17 05:36 Magnesium Level 5.4 *H 3.3 #H D-Dimer 2891.56 H D-Dimer Comment Troponin I < 0.012 < 0.012 White Blood Count 13.9 H Red Blood Count 4.60 Hemoglobin 12.0 Hematocrit 37.1 Mean Corpuscular Volume 80.7 L Mean Corpuscular Hemoglobin 26.1 L Mean Corpuscular Hemoglobin Concent 32.3 Red Cell Distribution Width 15.4 H Platelet Count 280 Mean Platelet Volume 9.0 Neutrophils % 85.9 H Lymphocytes % 8.6 L Monocytes % 4.4 Eosinophils % 0.0 Basophils % 0.1 Nucleated Red Blood Cells % 0.0 Neutrophils # 12.0 H Lymphocytes # 1.2 Monocytes # 0.6 Eosinophils # 0.0 Basophils # 0.0 Nucleated Red Blood Cells # 0.0 Sodium Level 134 L Potassium Level 4.5 Chloride Level 109 Carbon Dioxide Level 17 L Anion Gap 13 Blood Urea Nitrogen 7 Creatinine 0.49 Glucose Level 132 # Calcium Level 8.2 L Total Bilirubin 0.5 Direct Bilirubin 0.00 Indirect Bilirubin 0.5 Aspartate Amino Transf (AST/SGOT) 15 Alanine Aminotransferase (ALT/SGPT) 23 Alkaline Phosphatase 149 H Total Protein 6.5 Albumin 3.3 Globulin 3.20 Albumin/Globulin Ratio 1.03 Test 03/17/17 11:45 Troponin I < 0.012 Medications Medications Current Medications Terbutaline Sulfate 0.25 mg 0.25 mg PRN PRN SC PAIN Last administered on t 16:42; Admin Dose 0.25 MG; Start 03/15/17 at 16:30 Cefazolin Sodium/ Dextrose 50 ml @ 100 mls/hr ONCE IV ; Start 03/15/17 at 19:30 Clindamycin HCl/ Dextrose 50 ml @ 50 mls/hr ONCE IV ; Start 03/15/17 at 19:30 Oxytocin/Lactated Ringer's 500 ml @ 125 mls/hr ONCE IV ; Start 03/15/17 at 19: 30 Oxytocin/Lactated Ringer's 500 ml @ 0 mls/hr ONCE PRN IV For Hemorrhage Management; Start 03/15/17 at 19:30 Methylergonovine Maleate (Methergine) 0.2 mg ONCE PRN IM VAGINAL BLEEDING; Start 03/15/17 at 19:30 Carboprost Tromethamine (Hemabate) 250 mcg ONCE PRN IM VAGINAL BLEEDING; Start 03/15/17 at 19:30 Misoprostol (Cytotec) 1,000 mcg ONCE PRN LA VAGINAL BLEEDING; Start 03/15/17 at 19:30 Calcium Gluconate (Ca Gluc) 1 gm ONCE PRN IV FOR MAGNESIUM TOXICITY; Start 03/15 at 19:30 Famotidine (Pepcid Iv) 20 mg BID IV Last administered on 03/17/17 09:18; Admin Dose 20 MG; Start 03/16/17 at 19:00 Acetaminophen (Tylenol Tab) 650 mg Q6H PRN PO PAIN AND OR ELEVATED TEMP; Start 03/16/17 at 19:00 Enoxaparin Sodium (Lovenox) 120 mg Q12H SC Last administered on 03/17/17 06:13 ; Admin Dose 120 MG; Start 03/17/17 at 05:00 Prenat Multivit/ Tool And Fixture Repairer/Iron/Folic Ac ( S) 1 tab DAILY PO ; Start at 09:00 Ferrous Sulfate (Ferrous Sulfate (Ec)) 325 mg DAILY PO ; Start 03/18/17 at 09:00 Famotidine (Pepcid Iv) 20 mg BID IV ; Start 03/17/17 at 21:00 Acetaminophen/ Hydrocodone Bitart ([place] (10/325)) 2 tab Q6H PRN PO PAIN; Start 03/17/17 at 15:30 Lorazepam (Ativan) 1 mg Q8H PRN IV ANXIETY; Start 03/17/17 at 15:30 Morphine Sulfate (morphine) 2 mg Q4H PRN IV PAIN LEVEL 4-6; Start 03/17/17 at 15:30 Procedures Procedures PROCEDURE: US bilateral lower extremity venous Doppler CLINICAL INDICATION: Bilateral swelling TECHNIQUE: Multiple sonographic images of the bilateral lower extremity deep venous system was obtained utilizing grayscale, color-flow, compressive sonography and Doppler imaging with augmentation. COMPARISON: There are no similar studies submitted for comparison. FINDINGS: There is normal compressibility and flow within the left common femoral, superficial femoral, popliteal, and calf veins. There is normal compressibility and flow within the right common femoral, superficial femoral, popliteal, and calf veins. IMPRESSION: No evidence of DVT within the lower extremities. RPTAT: HIKT .Shane Song MD, MD Date Time Electronically viewed and signed by .Shane Song MD, on 03/17/2017 04:34 .T/ CC: BEATRIZ HAWTHORNE PROCEDURE: MR Brain without contrast, MRA brain without contrast, MRA neck without contrast. CLINICAL INDICATION: 31-year-old female with disconjugate left 5 days, suspected infarct. TECHNIQUE: An MRI of the brain was performed without contrast utilizing the following sequences: Sagittal T1 weighted, sagittal FLAIR, axial T1, axial FLAIR, axial T2 weighted, axial diffusion weighted (EPI technique [id number]), axial ADC mapping. MRA head: 3-D [id number] imaging through the cerebral vasculature with MIP reconstructions. MRA neck: An MRA of the major cervical arteries was performed without contrast utilizing axial 2D time of flight. Source and MIPPED images were reviewed. Images were reviewed on a high- resolution PACS workstation. COMPARISON: No prior studies are available for comparison. FINDINGS: MRI brain: Diffusion weighted sequences demonstrate no evidence of acute lacunar or lobar infarction. There is no intracranial hemorrhage, extra-axial fluid collection, mass lesion, midline shift or hydrocephalous. The ventricles , sulci and cisterns are normal in size and configuration. The basal cisterns are patent. The signal intensity is normal throughout the cerebrum, brain stem and cerebellum. Normal flow voids are visible the proximal intracranial arteries and dural sinuses, indicating patency. The midline structures are intact. The cavernous sinuses are symmetric. The visualized orbits are unremarkable. The paranasal sinuses, mastoid air cells and middle ear cavities are normally aerated. The orbits, calvarium and extracranial soft tissues are normal in appearance. MRA head: Anterior circulation: The petrous and cavernous segments of the internal carotid arteries are normal in appearance. The supraclinoid internal carotid arteries are normal in appearance. The middle and anterior cerebral arteries as well as their branches are normal. The anterior communicating artery is patent. The posterior communicating arteries are diminutive, but patent. Posterior circulation: The right vertebral artery is dominant. The basilar artery and its branches are normal in appearance. The posterior cerebral arteries are normal in appearance. There is no aneurysm, hemodynamically significant stenosis or vascular malformation. Limited visualization of the remaining brain parenchyma is unremarkable. There is no intracranial hemorrhage , mass lesion or hydrocephalous. MRA neck: The common carotid arteries are patent and normal in caliber. The carotid bulbs appear normal, and no hemodynamically significant stenosis is evident within either internal carotid artery. The cervical segments of the internal carotid arteries are normal in appearance. The vertebral arteries are patent and normal in caliber bilaterally. The right vertebral artery is dominant. There is no evidence of vascular stenosis, dissection, aneurysm or occlusion. The visualized neck soft tissues are unremarkable. IMPRESSION: 1. Normal MRI of the brain without contrast. No intracranial hemorrhage, mass lesion, infarction or hydrocephalous. 2. Normal MRA of the head without contrast. No aneurysm, hemodynamically significant stenosis or vascular malformation. 3. Normal MRA of the neck without contrast. No aneurysm, dissection or hemodynamically significant stenosis. RPTAT: HGAS .Murphy Suarez MD, MD Date Time Electronically viewed and signed by .Murphy Suarez MD, MD on 03/16/2017 23: 29 .S/ CC: MAISHA PAPPAS MD PROCEDURE: CT angiogram chest. CLINICAL INDICATION: Shortness of breath. TECHNIQUE: CT angiogram of the chest was performed utilizing axial images with reconstructions in sagittal and coronal planes following the intravenous administration of 84 cc Visipaque 320 contrast. The administered radiation dose is CTDI 19.8 mGy, DLP 623 mGy-cm. COMPARISON: No pertinent prior examinations are submitted for comparison. FINDINGS: Pulmonary angiogram: There is suboptimal enhancement of the pulmonary arteries. There is minimal respiratory motion artifact. There is no evidence of large central pulmonary embolus. The examination is otherwise nondiagnostic for pulmonary embolus. Aortogram: There is no evidence of aortic dissection or aneurysm. Major branches of the aorta are patent. Chest: There is mild atelectasis within the lung bases. No pleural effusions are seen. The tracheobronchial tree is unremarkable. Visualized Upper abdomen: Unremarkable. Osseous structures: Unremarkable. IMPRESSION: Nondiagnostic examination for pulmonary embolus due to poor enhancement of the pulmonary arteries. No acute cardiopulmonary findings. RPTAT: HIKT .Shane Song MD, MD Date Time Electronically viewed and signed by .Shane Song MD, MD on 03/17/2017 00:22 .T/ CC: BEATRIZ HAWTHORNE BOLATITO M. March 17, 2017 17:03
[2017-03-17] MEDS: ACETAMINOPHEN 325 MG TAB PO PRN (19:20)
--- NOTE | 2017-03-17 19:29 | RADRPT ---
Vent Rate: 112 bpm RR Interval: 0 msec SD Interval: 126 msec QRS Duration: 80 msec QT Interval: 340 msec QTC Interval: 464 msec P-R-T [place]: 56 - 49 - 28 degrees Sinus tachycardia Otherwise normal ECG Electronically Signed By: Ryan Dey [id number]
[2017-03-17] MEDS ORDERED: FAMOTIDINE 20 MG INJ IV SCH (21:00)
[2017-03-17] MEDS: FAMOTIDINE 20 MG TAB PO SCH (21:18)
[2017-03-18] MEDS: ACETAMINOPHEN 325 MG TAB PO PRN (06:56)
[2017-03-18 07:26] LABS: ADD SCAN DIFF NO
[2017-03-18 07:31] LABS: BASOPHILS % 0.1 % (0.0-2.0); EOSINOPHILS # 0.1 10^3/ul (0.0-0.5); EOSINOPHILS % 0.4 % (0.0-7.0); HEMATOCRIT 36.3 % (37.0-47.0); HEMOGLOBIN 11.7 g/dl (12.0-16.0); LYMPHOCYTES # 2.3 10^3/ul (0.8-2.9); MEAN CORPUSCULAR HEMOGLOBIN 26.2 pg (29.0-33.0); MEAN CORPUSCULAR HGB CONC 32.2 g/dl (32.0-37.0); MEAN CORPUSCULAR VOLUME 81.4 fl (82.0-101.0); MEAN PLATELET VOLUME 9.3 fl (7.4-10.4); MONOCYTE # 1.1 10^3/ul (0.3-0.9); MONOCYTES % 9.9 % (0.0-11.0); NEUTROPHIL # 7.4 10^3/ul (1.6-7.5); NEUTROPHILS % 66.9 % (39.0-77.0); PLATELET COUNT 265 10^3/UL (140-415); RED BLOOD COUNT 4.46 10^6/ul (4.20-5.40); RED CELL DISTRIBUTION WIDTH 15.9 % (11.5-14.5); WHITE BLOOD COUNT 11.1 10^3/ul (4.8-10.8)
[2017-03-18 08:02] LABS: CALCIUM 8.7 mg/dl (8.4-10.2); CREATININE 0.44 mg/dl (0.44-1.00)
[2017-03-18] MEDS ORDERED: FERROUS SULFATE (EC) 325 MG TAB PO SCH (09:00)
[2017-03-18] MEDS ORDERED: MULTIVIT/MIN/FOLATE/IRON/PREN TAB PO SCH (09:00)
[2017-03-18] MEDS ORDERED: ENOXAPARIN 40 MG/0.4 ML SYG SC SCH (09:00)
[2017-03-18] MEDS: FAMOTIDINE 20 MG TAB PO SCH (09:21)
[2017-03-18] MEDS ORDERED: KETOROLAC 30 MG INJ IM STA (13:08)
[2017-03-18] MEDS ORDERED: METOCLOPRAMIDE 10 MG INJ IM ONE (13:30)
[2017-03-18] MEDS ORDERED: OXYC-279 PO (13:56)
[2017-03-18] MEDS ORDERED: SUMATRIPTAN 25 MG TAB PO ONE (14:00)
== END 2017-03-18 14:55 | disposition home or self-care (01) | DRG 781 ==
LOC: OBT 15:00 → L-D 15:00 → OBT 17:45 → L-D 17:45 → OBG 03-17 15:01
PROVIDERS: ADMIT Obstetrics & Gynecology; ATTEND Obstetrics & Gynecology
DX: O26.893 Other specified pregnancy related conditions, third trimester (principal); Z68.41 Body mass index [BMI] 40.0-44.9, adult; R07.9 Chest pain, unspecified; H53.8 Other visual disturbances; R51 Headache; O34.219 Maternal care for unspecified type scar from previous cesarean delivery; O26.03 Excessive weight gain in pregnancy, third trimester; O99.213 Obesity complicating pregnancy, third trimester; E66.9 Obesity, unspecified; O60.03 Preterm labor without delivery, third trimester; Z3A.33 33 weeks gestation of pregnancy
CPT/HCPCS: 36415; 70544; 70549; 70551; 71010; 71275; 76815; 76818; 80048; 80053; 81001; 81003; 83735; 84484; 84560; 85025; 85378; 85384; 85610; 85730; 86592; 86850; 86900; 86901; 87086; 93005; 93970; 96372; J1940; G0463; J0131; J0702; J1650; J1885; J2060; J2175; J2270; J2765; J3105; J3410; J3475; J7030; J7120; Q9967

== ENCOUNTER 2017-03-23 20:34 | Outpatient (CLI) | payer OTHER ==
[~2017-03-23] VITALS: Ht 154.9 cm; Wt 112.8 kg
[~2017-03-23 20:34] MED LIST changes: -ACET500C5 PO; -FAMO-18 PO; +OXYC-279 PO; +PRENAT PO
[2017-03-23 20:59] VITALS: Ht 154.9 cm; Wt 112.8 kg
[2017-03-23 21:00] VITALS: BP 118/67; PULSE 82; RESP 18
--- NOTE | 2017-03-23 22:07 | QN ---
Documentation Comment Laborist Dr Silvestre's pt Pt sent up from ER stating she came here for chest pain and she needs to have the baby evaluated first. 31 y.o. A1 with an IUP at 34w 5d c/o chest pain related to acid reflux. OPt states she has reflux her entire and has been taking Tums but it doesn't work so when she lays down she has a lot of pain related to it. Ever since yesterday she started to have a lot of pain related to drinking fluids only. If she eats she doesn't have pain but with fluids she reports a severe burning pain whether cold or hot fluids. Baby reports the baby moving and no vaginal bleeding or leaking. PMHx: GERD. PSHx: C/S x 1. Cholecystectomy. POBHx: mNSVD x 2. C/S x 1. NKDA. NST:baseline 130 bpm with accels to 160 bpm. No decels. No UC's noted. A: IUP at 34w 5d. GERD. Severe pain with swallowing liquids related to GERD? P: D/C back to the ER for evaluation/treatment. CRISELDA JONES MD March 23, 2017 22:07
== END 2017-03-23 22:04 | disposition home or self-care (01) ==
LOC: OBT 20:34 → L-D 20:35 → OBT 21:58
PROVIDERS: ATTEND Obstetrics & Gynecology
DX: O26.893 Other specified pregnancy related conditions, third trimester (principal); R07.9 Chest pain, unspecified; Z3A.34 34 weeks gestation of pregnancy
CPT/HCPCS: G0463

== ENCOUNTER 2017-03-28 12:40 | Inpatient (IN) | payer OTHER ==
[~2017-03-28] VITALS: Ht 157.5 cm; Wt 112.1 kg
[~2017-03-28 12:40] MED LIST changes: -OXYC-279 PO
[2017-03-28 14:04] VITALS: Ht 157.5 cm; Wt 112.1 kg
[2017-03-28 14:05] VITALS: BP 145/71; PULSE 100
[2017-03-28] MEDS ORDERED: TERBUTALINE 1 ML ONE (14:39)
--- NOTE | 2017-03-28 14:54 | RADRPT ---
PROCEDURE: US OB. CLINICAL INDICATION: Size and dates , large for dates TECHNIQUE: Multiple sonographic images of the pelvis and gravid uterus were obtained. The images were reviewed on a PACS workstation. COMPARISON: No prior studies are available for comparison. FINDINGS: There is a single viable intrauterine gestation. Cardiac activity is present with 139 beats per min teller. There is a vertex presentation. The placenta is anterior. There is no evidence for an abruption or placenta previa. There is a normal amount of amniotic fluid with an STONEY = 13.1 cm. Measurements were made in order to determine age. The results are as follows: BPD =8.3 cm HC =30.6 cm AC =34.7 cm FL =6.7 cm Estimated gestational age of approximately 34 weeks and 4 days based on ultrasound measurements. Clinical age: 37 weeks and 6 days. The estimated date of delivery is 05/05/17, based on ultrasound measurements. The EFW = 2969 g, 28%, based on LMP age. RPTAT: AA IMPRESSION: Single viable intrauterine gestation of approximately 34 weeks and 4 days based on ultrasound measu rements. Smaller than clinical age by 3 weeks. .Luis E Greenfield MD, Date Time Electronically viewed and signed by .Luis E Greenfield MD, on 03/28/2017 14:53 .S/
--- NOTE | 2017-03-28 14:54 | RADRPT ---
PROCEDURE: US OB biophysical profile. CLINICAL INDICATION: decreased movements TECHNIQUE: Multiple sonographic images of the pelvis were obtained. The images were reviewed on a PACS workstation. COMPARISON: No prior studies are available for comparison. FINDINGS: There is a single viable intrauterine gestation. Cardiac activity is present with 144 beats per min kailyn. There is a vertex presentation. The placenta is anterior. There is no evidence of placental abruption. There is a normal amount of amniotic fluid with an STONEY = 13.1 cm. Biophysical profile: movement 2/2 tone 2/2. breathing 2/2 STONEY 2/2 Total 06/06 RPTAT: AA . IMPRESSION: Normal biophysical profile. . .Luis E Greenfield MD, MD Date Time Electronically viewed and signed by .Luis E Greenfield MD, MD on 03/28/2017 14:54 .S/
[2017-03-28] MEDS ORDERED: LACTATED RINGER'S 1,000 ML IV SCH (15:00)
[2017-03-28] MEDS ORDERED: TERBUTALINE 1 MG/ML INJ SC ONE ×2 (15:00→17:00)
[2017-03-28] MEDS ORDERED: OXYTOCIN 30 UNITS/LR 500 ML IV PRN (19:00)
[2017-03-28] MEDS ORDERED: CARBOPROST 250 MCG INJ IM PRN (19:00)
[2017-03-28] MEDS ORDERED: MISOPROSTOL 200 MCG TAB PR PRN (19:00)
[2017-03-28] MEDS ORDERED: OXYTOCIN 30 UNITS/LR 500 ML IV SCH ×2 (19:00)
[2017-03-28] MEDS ORDERED: METHYLERGONOVINE 0.2 MG INJ IM PRN (19:00)
[2017-03-28] MEDS ORDERED: MEPERIDINE 50 MG INJ IM ONE (21:00)
[2017-03-28] MEDS ORDERED: LACTATED RINGER'S 1,000 ML IV PRN (21:00)
[2017-03-28 21:31] LABS: ADD SCAN DIFF NO
[2017-03-28 21:39] LABS: BASOPHILS % 0.2 % (0.0-2.0); EOSINOPHILS # 0.1 10^3/ul (0.0-0.5); EOSINOPHILS % 0.4 % (0.0-7.0); HEMATOCRIT 37.9 % (37.0-47.0); HEMOGLOBIN 12.5 g/dl (12.0-16.0); LYMPHOCYTES # 2.3 10^3/ul (0.8-2.9); LYMPHOCYTES % 18.3 % (15.0-51.0); MEAN CORPUSCULAR HEMOGLOBIN 26.5 pg (29.0-33.0); MEAN CORPUSCULAR VOLUME 80.3 fl (82.0-101.0); MEAN PLATELET VOLUME 9.2 fl (7.4-10.4); MONOCYTES % 7.8 % (0.0-11.0); NEUTROPHIL # 9.2 10^3/ul (1.6-7.5); NEUTROPHILS % 72.7 % (39.0-77.0); PLATELET COUNT 271 10^3/UL (140-415); RED BLOOD COUNT 4.72 10^6/ul (4.20-5.40); RED CELL DISTRIBUTION WIDTH 15.5 % (11.5-14.5); WHITE BLOOD COUNT 12.6 10^3/ul (4.8-10.8)
[2017-03-28 22:13] LABS: INR 0.98
[2017-03-28 22:14] LABS: PARTIAL THROMBOPLASTIN TIME 30.1 Sec (25.0-35.0)
--- NOTE | 2017-03-28 23:18 | HP ---
Date/Time of Note Date/Time of Note DATE: 03/28/17 TIME: 22:38 OB - History Hx of Present Free Text/Dictation 31y/o g/5 p/3 admitted to [facility] at 35weeks 3/7 day with mild to moderate contractions history of previous c section pelvic exam on admission cx 1cm 30% at -2 station contraction mild 2 to 4 minutes heart category 1 Estimated Due Date: Apr 29, 2017 : 5 Para: 3 Spontaneous : 1 Ultrasounds: Normal mid trimester US Obstetrical Complications: None Medical Complications: None Past Family/Social History * Past Medical, Surgical, Family and Obstetric Histories reviewed from chart. OB Admission Exam Vital Signs Vital Signs Vital Signs Date Time Temp Pulse Resp B/P Pulse Ox O2 Delivery O2 Flow Rate FiO2 03/28/17 14:05 98.3 100 145/71 Physical Exam HEENT: WNL Heart: Rhythm Normal Lungs: Clear, Equal Extremities: Normal Reflexes: Normal Cervical Dilatation: 1cm Effacement: 25% Station: -2 Membranes: Intact Heart Rate: 140's Accelerations: Accelerations Present Decelerations: No Decelerations Varibility: Moderate Contractions on Admission: < 5 Minutes Apart Last 72 hours Lab Results CBC & BMP 03/28/17 21:08 OB Assessment/Plan Reason for admission: labor, other Plan: Expectant Management, Other (hyration ,tocolysis to slowdone ) Other plan: hydration, terbutaline to possibly abort or slow done cont. DESIREE RIGGINS MD March 28, 2017 23:12
[2017-03-28] MEDS ORDERED: DIPHENHYDRAMINE 50 MG INJ IV ONE (23:30)
[2017-03-29] MEDS: LACTATED RINGER'S 1,000 ML IV SCH ×5 (02:42→22:52)
--- NOTE | 2017-03-29 09:34 | QN ---
Documentation Comment Mrs. Gerson Ray' has been admitted since yesterday at 35 weeks and 4 days with complaint of contraction, she has a history of previous her main complaint is low back pain and pelvic pressure states contractions causing pain scale of 7 out of 10 however during the bedside observation no contraction noted within 10-15 minutes of close watching, perinatology consultation requested to review the monitor strip, plan pending perinatology recommendation DESIREE RIGGINS MD March 29, 2017 09:34
[2017-03-29] MEDS: ACETAMINOPHEN 325 MG TAB PO PRN ×2 (11:00→18:10)
[2017-03-29] MEDS: BUTORPHANOL 2 MG INJ IV PRN ×2 (11:00→23:06)
--- NOTE | 2017-03-29 18:43 | QN ---
Documentation Comment Due to the patient's constant complain of the back pain and lower abdominal pain perinatologist recommended 2 mg of Stadol patient after received the medication has been sleeping not complaining of pain DESIREE RIGGINS MD March 29, 2017 18:43
[2017-03-30] MEDS: LACTATED RINGER'S 1,000 ML IV SCH (06:46)
[2017-03-30] MEDS ORDERED: PRENAT PO (11:22)
--- NOTE | 2017-03-30 14:23 | DS ---
Date/Time of Note Date/Time of Note DATE: 03/30/17 TIME: 14:19 Discharge Summary Admission/Discharge Info Admit Date/Time March 28, 2017 at 17:56 Discharge Date/Time March 30, 2017 at 1420 Final Diagnosis 35 weeks 4 days admitted with uterine contract history of previous C- section TO rule out labor Patient Condition: Good Consults Perinatology Procedures Observation to rule out labor or other causes of abdominal pain Hx of Present Illness 35-1/2 weeks history of previous Hospital Course Satisfactory uneventful patient discharged home free of contraction or abdominal pain Home Meds Reported Medications Multivit/Min/Fol Ac/Iron/Pren* ( S*) 1 Tab Tab, 1 TAB PO DAILY, TAB 03/15/17 Discontinued Reported Medications Oxycodone HCl/Acetaminophen (Percocet 5-325 mg Tablet) 1 Each Tablet, 1 EACH PO Y for HEADACHE, TAB 03/18/17 Follow-up Plan Appointment office in 5 days Primary Care Provider Erik Booth Time spent on discharge: < 30 minutes DESIREE RIGGINS MD Mar 30, 2017 14:23
== END 2017-03-30 14:26 | disposition home or self-care (01) | DRG 780 ==
LOC: OBT 12:40 → L-D 12:41 → OBT 17:55 → L-D 17:56
PROVIDERS: ADMIT Obstetrics & Gynecology; ATTEND Obstetrics & Gynecology
DX: O47.03 False labor before 37 completed weeks of gestation, third trimester (principal); Z3A.35 35 weeks gestation of pregnancy
CPT/HCPCS: 76815; 76818; 85025; 85610; 85730; 86592; 86850; 86900; 86901; 87340; 96360; 96361; 96372; G0463; J0595; J2175; J3105; J7120

== ENCOUNTER 2017-04-04 14:08 | Inpatient (IN) | payer OTHER ==
[~2017-04-04] VITALS: Ht 157.5 cm; Wt 111.2 kg
[2017-04-04 14:40] VITALS: BP 116/71; PULSE 85; RESP 19; Ht 157.5 cm; Wt 111.2 kg
[2017-04-04] MEDS ORDERED: LACTATED RINGER'S 1,000 ML IV ONE (15:10)
--- NOTE | 2017-04-04 15:16 | RADRPT ---
PROCEDURE: US OB. CLINICAL INDICATION: Size and dates TECHNIQUE: Multiple sonographic images of the pelvis and gravid uterus were obtained. The images were reviewed on a PACS workstation. COMPARISON: 03/28/17 FINDINGS: There is a single viable intrauterine gestation. Cardiac activity is present with 134 beats per min kailyn. There is a vertex presentation. The placenta is anterior. There is no evidence for an abruption or placenta previa. There is a normal amount of amniotic fluid with an STONEY = 10.7 cm. Measurements were made in order to determine age. The results are as follows: BPD =8.6 cm HC =31.3 cm AC =35.5 cm FL =6.9 cm Estimated gestational age of approximately 36 weeks and 0 days based on ultrasound measurements. Clinical age: 36 weeks and 3 days. The estimated date of delivery is 05/02/17, based on ultrasound measurements. The EFW = 3189 g, 78%, based on LMP age. RPTAT: AA IMPRESSION: Single viable intrauterine gestation of approximately 36 weeks and 0 days based on ultrasound measu rements. .Luis E Greenfield MD, MD Date Time Electronically viewed and signed by .Luis E Greenfield MD, MD on 04/04/2017 15:16 .S/
--- NOTE | 2017-04-04 15:16 | RADRPT ---
PROCEDURE: US OB biophysical profile. CLINICAL INDICATION: decreased movements, labor pain TECHNIQUE: Multiple sonographic images of the pelvis were obtained. The images were reviewed on a PACS workstation. COMPARISON: No prior studies are available for comparison. FINDINGS: There is a single viable intrauterine gestation. Cardiac activity is present with 121 beats per min kailyn. There is a vertex presentation. The placenta is anterior. There is no evidence for an abruption or placenta previa. There is a normal amount of amniotic fluid with an STONEY = 10.7 cm. Biophysical profile: movement 2/2 tone 2/2. breathing 2/2 STONEY 2/2 Total 06/06 RPTAT: AA . IMPRESSION: Normal biophysical profile. . .uLis E Greenfield MD, Date Time Electronically viewed and signed by .Luis E Greenfield MD, MD on 04/04/2017 15:16 .S/
[2017-04-04] MEDS ORDERED: CITRIC ACID/SODIUM CITRATE 15 ML CUP PO ONE (15:30)
[2017-04-04] MEDS ORDERED: ONDANSETRON 4 MG INJ IV ONE (15:30)
[2017-04-04] MEDS ORDERED: LACTATED RINGER'S 1,000 ML IV SCH (15:35)
[2017-04-04 15:44] LABS: ADD SCAN DIFF NO
[2017-04-04 15:46] LABS: BASOPHILS % 0.2 % (0.0-2.0); EOSINOPHILS # 0.1 10^3/ul (0.0-0.5); HEMOGLOBIN 13.5 g/dl (12.0-16.0); LYMPHOCYTES # 2.3 10^3/ul (0.8-2.9); LYMPHOCYTES % 21.3 % (15.0-51.0); MEAN CORPUSCULAR HEMOGLOBIN 26.2 pg (29.0-33.0); MEAN CORPUSCULAR HGB CONC 32.9 g/dl (32.0-37.0); MEAN CORPUSCULAR VOLUME 79.5 fl (82.0-101.0); MEAN PLATELET VOLUME 8.9 fl (7.4-10.4); MONOCYTE # 0.8 10^3/ul (0.3-0.9); MONOCYTES % 7.7 % (0.0-11.0); NEUTROPHIL # 7.4 10^3/ul (1.6-7.5); NEUTROPHILS % 69.3 % (39.0-77.0); PLATELET COUNT 293 10^3/UL (140-415); RED BLOOD COUNT 5.16 10^6/ul (4.20-5.40); RED CELL DISTRIBUTION WIDTH 15.4 % (11.5-14.5); WHITE BLOOD COUNT 10.6 10^3/ul (4.8-10.8)
[2017-04-04] MEDS ORDERED: CARBOPROST 250 MCG INJ IM PRN ×2 (16:00→21:30)
[2017-04-04] MEDS ORDERED: CEFAZOLIN 2 GM/50 ML (PMX) 50 ML IV SCH (16:00)
[2017-04-04] MEDS ORDERED: OXYTOCIN 30 UNITS/LR 500 ML IV PRN ×2 (16:00→21:30)
[2017-04-04] MEDS ORDERED: OXYTOCIN 30 UNITS/LR 500 ML IV SCH (16:00)
[2017-04-04] MEDS ORDERED: METHYLERGONOVINE 0.2 MG INJ IM PRN ×2 (16:00→21:30)
[2017-04-04] MEDS ORDERED: MISOPROSTOL 200 MCG TAB PR PRN ×2 (16:00→21:30)
[2017-04-04 16:04] LABS: INR 0.96; PROTIME 12.8 Sec (12.2-14.2)
[2017-04-04 16:05] LABS: PARTIAL THROMBOPLASTIN TIME 28.6 Sec (25.0-35.0)
[2017-04-04] MEDS ORDERED: morphine SULFATE/PF (10 MG/10 ML) INJ ONE (16:31)
[2017-04-04] MEDS ORDERED: FENTAnyl 50 MCG/ML VIAL ONE (16:31)
[2017-04-04] MEDS ORDERED: METOCLOPRAMIDE 10 MG INJ ONE (17:00)
[2017-04-04] MEDS ORDERED: EPHEDrine SULFATE 50 MG/5 ML SYG ONE (17:06)
[2017-04-04] MEDS ORDERED: PHENYLephrine (100 MCG/ML) 5ML SYG ONE (17:06)
--- NOTE | 2017-04-04 17:09 | HP ---
Date/Time of Note Date/Time of Note DATE: 04/04/17 TIME: 16:49 OB - History Hx of Present Free Text/Dictation 31 years old female 5 para 3 SAB one EDC of April 29, 2017 admitted to [facility] [place] with a history of previous section in labor pelvic examination cervical dilatation at 2 cm 70% effaced vertex at -2 station contraction every 3-5 scale of pain 8 out of 10 being prepared to undergo repeat section This patient has been under the care of the [facility] her was not complicated with gestational diabetes -induced hypertension however she was previously admitted in the hospital for abdominal pain, labor she had received betamethasone during that admission was on magnesium sulfate for for a few days till contractions subsided patient was discharged home, return today to the hospital with contractions and evidence of labor with cervical dilatation 3 cm 70% to 80% effacement telephone perinatology consult, recommended delivery Her [employer] menarche at age 11 history of total of 5 including present 2 normal vaginal delivery 1 section and 1 SAB history of depression, cholecystectomy 2003 D&C 2009 heart palpitations since 2004 taking baby aspirin 81 mg p.o. twice daily stopped taking it as of 2015 Allergy denies allergy to any known medication Social habit denies a smoking or drinking Review of system within normal Physical examination 5 feet 2. 245 pound Temperature 98.2 pulse 83 respiration 20 blood pressure 118/73 Head ears nose and throat negative Neck supple no thyromegaly Lungs clear to P&A Heart normal changes of rhythm no murmur Abdomen fundal height 36 cm from symphysis pubis heart rate category 1, contraction every 3-5 minutes Pelvic examination Cervix 2-3 cm, 70-80% effaced vertex at -2 station Extremity no varicosities no edema reflexes within normal Impression Intrauterine at 36-1/2 weeks gestation history of previous section in labor Plan of treatment Repeat section at 36-1/2 weeks gestation active labor Patient is aware of the complication of the surgery including bowel bladder injury infection hemorrhage and hematoma and she is willing to go ahead with this procedure. Chief Complaint: labor 36-1/2 week previous in labor Estimated Due Date: Apr 29, 2017 : 5 Para: 3 Spontaneous : 1 Care: Good Care Ultrasounds: Normal mid trimester US Obstetrical Complications: None Medical Complications: None, Psychiatric Past Family/Social History * Past Medical, Surgical, Family and Obstetric Histories reviewed from chart. Rubella: immune RPR/VDRL: Negative GBS Status: Negative HBsAG: Negative OB Admission Exam Vital Signs Vital Signs Vital Signs Date Time Temp Pulse Resp B/P Pulse Ox O2 Delivery O2 Flow Rate FiO2 04/04/17 14:40 98.6 85 19 116/71 99 Room Air Last 72 hours Lab Results CBC & BMP 04/04/17 15:30 DESIREE RIGGINS MD Apr 04, 2017 17:04
[2017-04-04] MEDS ORDERED: PROCHLORPERAZINE 10 MG INJ IV PRN (17:30)
[2017-04-04] MEDS ORDERED: DIPHENHYDRAMINE 50 MG INJ IV PRN (17:30)
[2017-04-04] MEDS ORDERED: HYDROmorphONE 1 MG/ML SYG IV PRN ×2 (17:30)
[2017-04-04] MEDS ORDERED: ONDANSETRON 4 MG INJ IV PRN (17:30)
[2017-04-04] MEDS ORDERED: NALOXONE (0.4 MG/ML) INJ IV PRN (17:30)
[2017-04-04] MEDS ORDERED: OXYTOCIN 30 UNITS/LR 500 ML IV ONE (17:42)
--- NOTE | 2017-04-04 18:31 | OPR ---
DATE OF OPERATION: 04/04/2017 PREOPERATIVE DIAGNOSES: 1. Intrauterine at 36-1/2 weeks' gestation. 2. History of previous section. 3. In labor. POSTOPERATIVE DIAGNOSES: 1. Intrauterine at 36-1/2 weeks' gestation. 2. History of previous section. 3. In labor. PROCEDURE PERFORMED: Repeat transverse low cervical section. SURGEON: Desiree Riggins MD TEACHER'S AIDE: Dina Thurman MD ANESTHESIA: Spinal. ANESTHESIOLOGIST: Maty Ramachandran MD FINDINGS: Live baby girl with the 8 and 9. DETAILS OF THE PROCEDURE: Under satisfactory spinal anesthesia, the patient was prepped and draped and placed in supine position, tilted to the left. Pfannenstiel incision was made. Old scar was re moved. Incision carried through the subcutaneous tissue. Bleeders brought under control with elect rocautery. Fascia incised to the length of the incision. Rectus muscle divided in midline. Perito neum exposed and entered with a transverse incision. Exploration of abdomen revealed a gravid uteru s, normal-appearing tubes and ovaries and the lower segment of the uterus that was thinned out to th e thickness of 2 mm. Bladder flap was developed. Transverse incision was made in the lower segment of the uterus. Amniotic sac ruptured. Clear amniotic fluid noted. Live baby girl was delivered f rom occiput posterior. Nasal oropharyngeal suction was performed. Baby handed to the team for immediate attention. The patient received 20 units of Pitocin. Placenta delivered manually in tact. Uterine cavity cleaned with wet sponge and drainage established. Uterus closed in 2 layers u sing Monocryl #1 in continuous fashion. Peritoneal cavity irrigated with warm saline. Sponge, need le and instrument reported to be correct. Abdominal peritoneum closed with 2-0 chromic catgut continuously. Rectus muscle approximated with f ew interrupted 2-0 chromic catgut. Fascia closed with #1 PDS in a continuous fashion. Subcutaneous tissue approximated with 2-0 chromic catgut. The skin closed with zachary. Estimated blood loss 6 00 mL. Urine bag contained 300 mL of clear urine. The patient tolerated the procedure well, transf erred to recovery room in a good condition. Dictated By: DESIREE RIGGINS MD HF/NTS Conf#: [id number] DID#: [id number]
[2017-04-04 21:10] VITALS: BP 146/61; PULSE 80; RESP 20
[2017-04-04] MEDS ORDERED: LANOLIN 7 GM TUBE TOP PRN (21:30)
[2017-04-04] MEDS ORDERED: ACETAMINOPHEN/CODEINE #3 TAB PO PRN (21:30)
[2017-04-04] MEDS ORDERED: OXYCODONE/ACETAMINOPHEN (5/325) TAB PO PRN ×2 (21:30)
[2017-04-04] MEDS ORDERED: CEFAZOLIN 1 GM/50 ML (PMX) 50 ML IVPB SCH (21:30)
[2017-04-04] MEDS: OXYTOCIN 30 UNITS/LR 500 ML IV SCH (21:35)
[2017-04-05] MEDS ORDERED: CEFAZOLIN 1 GM/50 ML (PMX) 50 ML IVPB SCH (01:00)
[2017-04-05] MEDS: OXYTOCIN 30 UNITS/LR 500 ML IV SCH ×6 (01:34→21:17)
[2017-04-05] MEDS: KETOROLAC 30 MG INJ IV PRN ×2 (05:34→16:14)
[2017-04-05] MEDS: IBUPROFEN 600 MG TAB PO SCH ×5 (06:00→23:35)
--- NOTE | 2017-04-05 07:28 | OPPN ---
Date/Time of Note Date/Time of Note DATE: 04/05/17 TIME: 07:27 Anesthesia Follow up Anesthesia Follow up Last documented vital signs Vital Signs Date Time Temp Pulse Resp B/P Pulse Ox O2 Delivery O2 Flow Rate FiO2 04/05/17 04:53 96 21 04/04/17 21:10 97.9 80 20 146/61 Room Air Respiratory function: WNL Cardiovascular function: WNL Comments Pt is doing well, sitting up in bed with baby at bedside. VSS, A&Ox3, no n/v, pain controlled, CALIXTO, sensation intact, no COURTNEY, no PDPH sx, tolerating diet. ALIRIO CASTILLO MD Apr 05, 2017 07:28
[2017-04-05 07:36] LABS: ADD SCAN DIFF NO
[2017-04-05 07:38] LABS: BASOPHILS % 0.1 % (0.0-2.0); EOSINOPHILS # 0.1 10^3/ul (0.0-0.5); EOSINOPHILS % 0.8 % (0.0-7.0); HEMATOCRIT 35.3 % (37.0-47.0); HEMOGLOBIN 11.5 g/dl (12.0-16.0); LYMPHOCYTES % 16.7 % (15.0-51.0); MEAN CORPUSCULAR HEMOGLOBIN 26.3 pg (29.0-33.0); MEAN CORPUSCULAR HGB CONC 32.6 g/dl (32.0-37.0); MEAN CORPUSCULAR VOLUME 80.6 fl (82.0-101.0); MEAN PLATELET VOLUME 9.2 fl (7.4-10.4); NEUTROPHIL # 8.7 10^3/ul (1.6-7.5); NEUTROPHILS % 73.8 % (39.0-77.0); PLATELET COUNT 237 10^3/UL (140-415); RED BLOOD COUNT 4.38 10^6/ul (4.20-5.40); RED CELL DISTRIBUTION WIDTH 15.2 % (11.5-14.5); WHITE BLOOD COUNT 11.8 10^3/ul (4.8-10.8)
[2017-04-05 08:00] VITALS: BP 106/49; PULSE 86; RESP 18
--- NOTE | 2017-04-05 09:51 | PN ---
Date/Time of Note Date/Time of Note DATE: 04/05/17 TIME: 09:50 OB Subjective Subjective Subjective Post day 1 Afebrile, vital signs stable, abdomen soft, bowel sounds present, patient able to pass flatus, lochia moderate, extremity normal, ambulation encouraged. Laboratory Tests Test 04/04/17 15:30 04/05/17 07:15 White Blood Count 10.610^3/ul 11.810^3/ul Red Blood Count 5.1610^6/ul 4.3810^6/ul Hemoglobin 13.5g/dl 11.5g/dl Hematocrit 41.0% 35.3% Mean Corpuscular Volume 79.5fl 80.6fl Mean Corpuscular Hemoglobin 26.2pg 26.3pg Mean Corpuscular Hemoglobin Concent 32.9g/dl 32.6g/dl Red Cell Distribution Width 15.4% 15.2% Platelet Count 89936^3/UL 18532^3/UL Mean Platelet Volume 8.9fl 9.2fl Neutrophils % 69.3% 73.8% Lymphocytes % 21.3% 16.7% Monocytes % 7.7% 8.0% Eosinophils % 1.0% 0.8% Basophils % 0.2% 0.1% Nucleated Red Blood Cells % 0.0/100WBC 0.0/100WBC Neutrophils # 7.410^3/ul 8.710^3/ul Lymphocytes # 2.310^3/ul 2.010^3/ul Monocytes # 0.810^3/ul 1.010^3/ul Eosinophils # 0.110^3/ul 0.110^3/ul Basophils # 0.010^3/ul 0.010^3/ul Nucleated Red Blood Cells # 0.010^3/ul 0.010^3/ul Prothrombin Time 12.8Sec Prothrombin Time Ratio 1.0 INR International Normalized Ratio 0.96 Activated Partial Thromboplast Time 28.6Sec Current Medications Medications (Trade) Dose Ordered Sig/[place] Route PRN Reason Start Time Stop Time Status Last Admin Dose Admin Lactated Ringer's (Lr) 1,000 ml @ 1,000 mls/hr Q1H ONCE IV 04/04/17 15:10 04/04/17 15:37 DC 04/04/17 15:37 Ondansetron HCl (Zofran Inj) 4 mg pre-procedure ONCE IV 04/04/17 15:30 04/04/17 15:31 DC 04/04/17 16:17 Citric Acid/ Sodium Citrate 30 ml 30 ml PRE-PROCEDURE ONCE PO 04/04/17 15:30 04/04/17 15:31 DC 04/04/17 16:17 Lactated Ringer's 1,000 ml @ 125 mls/hr Q8H IV 04/04/17 15:35 04/04/17 21:20 DC 04/04/17 16:06 Cefazolin Sodium/ Dextrose 50 ml @ 100 mls/hr ONCE IV 04/04/17 16:00 04/04/17 21:20 DC Oxytocin/Lactated Ringer's 500 ml @ 125 mls/hr ONCE IV 04/04/17 16:00 04/04/17 21:20 DC 04/04/17 18:59 Oxytocin/Lactated Ringer's 500 ml @ 0 mls/hr ONCE PRN IV For Hemorrhage Management 04/04/17 16:00 04/04/17 21:20 DC Methylergonovine Maleate (Methergine) 0.2 mg ONCE PRN IM VAGINAL BLEEDING 04/04/17 16:00 04/04/17 21:20 DC 04/04/17 20:37 Carboprost Tromethamine (Hemabate) 250 mcg ONCE PRN IM VAGINAL BLEEDING 04/04/17 16:00 04/04/17 21:20 DC Misoprostol (Cytotec) 1,000 mcg ONCE PRN CA VAGINAL BLEEDING 04/04/17 16:00 04/04/17 21:20 DC Morphine Sulfate (Duramorph) 10 mg STK-MED ONCE .ROUTE 04/04/17 16:31 04/04/17 16:32 DC Fentanyl (Sublimaze) 100 mcg STK-MED ONCE .ROUTE 04/04/17 16:31 04/04/17 16:32 DC Metoclopramide HCl (Reglan) 10 mg STK-MED ONCE .ROUTE 04/04/17 17:00 04/04/17 17:01 DC Ephedrine Sulfate 50 mg STK-MED ONCE .ROUTE 04/04/17 17:06 04/04/17 17:07 DC Phenylephrine HCl (Gonzalo-Synephrine Inj Syg) 500 mcg STK-MED ONCE .ROUTE 04/04/17 17:06 04/04/17 17:07 DC Naloxone HCl (Narcan) 0.1 mg Q2M PRN IV FOR RESP RATE 8 OR LESS 04/04/17 17:30 04/04/17 21:20 DC Ketorolac Tromethamine (Toradol) 30 mg Q6H PRN IV PAIN 04/04/17 17:30 04/05/17 16:55 04/05/17 05:34 Hydromorphone HCl (Dilaudid) 0.2 mg Q3H PRN IV PAIN LEVEL 1-5 04/04/17 17:30 04/05/17 16:55 Hydromorphone HCl (Dilaudid) 0.4 mg Q3H PRN IV PAIN LEVEL 6-10 04/04/17 17:30 04/05/17 16:55 Diphenhydramine HCl (Benadryl) 25 mg Q6H PRN IV ITCHING 04/04/17 17:30 04/05/17 16:55 Ondansetron HCl (Zofran Inj) 4 mg Q6H PRN IV NAUSEA AND/OR VOMITING 04/04/17 17:30 04/05/17 16:55 04/04/17 19:02 Prochlorperazine (Compazine Inj) 10 mg ONCE PRN IV NAUSEA AND/OR VOMITING 04/04/17 17:30 04/05/17 16:55 Miscellaneous Information Duramorph: 0.2 mg Spi... GIVEN XX 04/04/17 17:30 04/04/17 21:20 DC Oxytocin/Lactated Ringer's 500 ml @ ud STK-MED ONCE IV 04/04/17 17:42 04/04/17 17:43 DC Acetaminophen/ Codeine Phosphate (Tylenol No.3) 1 tab Q4H PRN PO PAIN LEVEL 4-6 04/04/17 21:30 Acetaminophen/ Codeine Phosphate (Tylenol No.3) 2 tab Q4H PRN PO PAIN LEVEL 7-10 04/04/17 21:30 Oxycodone/ Acetaminophen (Percocet (5/ 325)) 1 tab Q4H PRN PO PAIN LEVEL 4-6 04/04/17 21:30 Oxycodone/ Acetaminophen (Percocet (5/ 325)) 2 tab Q4H PRN PO PAIN LEVEL 7-10 04/04/17 21:30 Ibuprofen (Motrin) 600 mg Q6 PO 04/05/17 18:00 UNV Simethicone (Mylicon) 160 mg Q8H PRN PO DISTENSION/GAS/BLOATING 04/04/17 21:30 Senna/Docusate Sodium (Senokot-S) 1 tab BID PO 04/05/17 09:00 Lanolin (Npa-D-Lvtxeq) 1 applic BEDSIDE MEDICATION PRN TOP BEDSIDE FOR GIDEON TO NIPPLES 04/04/17 21:30 Diphtheria/ Tetanus/Acell Pertussis 0.5 ml 0.5 ml ONCE ONCE IM* 04/07/17 09:00 04/07/17 09:01 Oxytocin/Lactated Ringer's 500 ml @ 0 mls/hr ONCE PRN IV For Hemorrhage Management 04/04/17 21:30 Methylergonovine Maleate (Methergine) 0.2 mg ONCE PRN IM VAGINAL BLEEDING 04/04/17 21:30 Carboprost Tromethamine (Hemabate) 250 mcg ONCE PRN IM VAGINAL BLEEDING 04/04/17 21:30 Misoprostol 1000 mcg 1,000 mcg ONCE PRN CA VAGINAL BLEEDING 04/04/17 21:30 Cefazolin Sodium 50 ml @ 100 mls/hr ONCE IVPB 04/04/17 21:30 04/04/17 21:38 DC Oxytocin/Lactated Ringer's 500 ml @ 125 mls/hr Q4H IV 04/04/17 21:17 04/05/17 09:41 Ibuprofen 600 mg 600 mg Q6 PO 04/05/17 00:00 Cefazolin Sodium (Ancef 1 Gm/50 ml (Pmx)) 50 ml @ 100 mls/hr ONCE IVPB 04/05/17 01:00 04/05/17 01:29 DC 04/05/17 01:35 DESIREE RIGGINS MD Apr 05, 2017 09:51
[2017-04-05] MEDS: SENNA/DOCUSATE NA (8.6MG/50MG) TAB PO SCH ×2 (10:30→20:59)
[2017-04-05 12:00] VITALS: BP 115/72; RESP 19
[2017-04-05 16:00] VITALS: BP 129/74; PULSE 113; RESP 18
[2017-04-05] MEDS ORDERED: IBUPROFEN 600 MG TAB PO SCH (18:00)
[2017-04-05 20:00] VITALS: BP 103/58; PULSE 88; RESP 18
[2017-04-06] MEDS: OXYTOCIN 30 UNITS/LR 500 ML IV SCH ×2 (01:17→05:17)
[2017-04-06 04:00] VITALS: BP 119/68; PULSE 87; RESP 18
[2017-04-06] MEDS: IBUPROFEN 600 MG TAB PO SCH ×4 (06:25→23:57)
[2017-04-06 07:30] VITALS: BP 119/58; PULSE 82; RESP 19
[2017-04-06] MEDS: SENNA/DOCUSATE NA (8.6MG/50MG) TAB PO SCH ×2 (09:45→20:29)
--- NOTE | 2017-04-06 13:45 | PN ---
Date/Time of Note Date/Time of Note DATE: 04/06/17 TIME: 13:41 OB Subjective Subjective Subjective April 06, 2017 Post day 2 Current Medications Medications (Trade) Dose Ordered Sig/Ph[place] Route PRN Reason Start Time Stop Time Status Last Admin Dose Admin Lactated Ringer's (Lr) 1,000 ml @ 1,000 mls/hr Q1H ONCE IV 04/04/17 15:10 04/04/17 15:37 DC 04/04/17 15:37 Ondansetron HCl (Zofran Inj) 4 mg pre-procedure ONCE IV 04/04/17 15:30 04/04/17 15:31 DC 04/04/17 16:17 Citric Acid/ Sodium Citrate 30 ml 30 ml PRE-PROCEDURE ONCE PO 04/04/17 15:30 04/04/17 15:31 DC 04/04/17 16:17 Lactated Ringer's 1,000 ml @ 125 mls/hr Q8H IV 04/04/17 15:35 04/04/17 21:20 DC 04/04/17 16:06 Cefazolin Sodium/ Dextrose 50 ml @ 100 mls/hr ONCE IV 04/04/17 16:00 04/04/17 21:20 DC Oxytocin/Lactated Ringer's 500 ml @ 125 mls/hr ONCE IV 04/04/17 16:00 04/04/17 21:20 DC 04/04/17 18:59 Oxytocin/Lactated Ringer's 500 ml @ 0 mls/hr ONCE PRN IV For Hemorrhage Management 04/04/17 16:00 04/04/17 21:20 DC Methylergonovine Maleate (Methergine) 0.2 mg ONCE PRN IM VAGINAL BLEEDING 04/04/17 16:00 04/04/17 21:20 DC 04/04/17 20:37 Carboprost Tromethamine (Hemabate) 250 mcg ONCE PRN IM VAGINAL BLEEDING 04/04/17 16:00 04/04/17 21:20 DC Misoprostol (Cytotec) 1,000 mcg ONCE PRN [place] VAGINAL BLEEDING 04/04/17 16:00 04/04/17 21:20 DC Morphine Sulfate (Duramorph) 10 mg STK-MED ONCE .ROUTE 04/04/17 16:31 04/04/17 16:32 DC Fentanyl (Sublimaze) 100 mcg STK-MED ONCE .ROUTE 04/04/17 16:31 04/04/17 16:32 DC Metoclopramide HCl (Reglan) 10 mg STK-MED ONCE .ROUTE 04/04/17 17:00 04/04/17 17:01 DC Ephedrine Sulfate 50 mg STK-MED ONCE .ROUTE 04/04/17 17:06 04/04/17 17:07 DC Phenylephrine HCl (Gonzalo-Synephrine Inj Syg) 500 mcg STK-MED ONCE .ROUTE 04/04/17 17:06 04/04/17 17:07 DC Naloxone HCl (Narcan) 0.1 mg Q2M PRN IV FOR RESP RATE 8 OR LESS 04/04/17 17:30 04/04/17 21:20 DC Ketorolac Tromethamine (Toradol) 30 mg Q6H PRN IV PAIN 04/04/17 17:30 04/05/17 16:55 DC 04/05/17 16:14 Hydromorphone HCl (Dilaudid) 0.2 mg Q3H PRN IV PAIN LEVEL 1-5 04/04/17 17:30 04/05/17 16:55 DC Hydromorphone HCl (Dilaudid) 0.4 mg Q3H PRN IV PAIN LEVEL 6-10 04/04/17 17:30 04/05/17 16:55 DC Diphenhydramine HCl (Benadryl) 25 mg Q6H PRN IV ITCHING 04/04/17 17:30 04/05/17 16:55 DC Ondansetron HCl (Zofran Inj) 4 mg Q6H PRN IV NAUSEA AND/OR VOMITING 04/04/17 17:30 04/05/17 16:55 DC 04/04/17 19:02 Prochlorperazine (Compazine Inj) 10 mg ONCE PRN IV NAUSEA AND/OR VOMITING 04/04/17 17:30 04/05/17 16:55 DC Miscellaneous Information Duramorph: 0.2 mg Spi... GIVEN XX 04/04/17 17:30 04/04/17 21:20 DC Oxytocin/Lactated Ringer's 500 ml @ ud STK-MED ONCE IV 04/04/17 17:42 04/04/17 17:43 DC Acetaminophen/ Codeine Phosphate (Tylenol No.3) 1 tab Q4H PRN PO PAIN LEVEL 4-6 04/04/17 21:30 Acetaminophen/ Codeine Phosphate (Tylenol No.3) 2 tab Q4H PRN PO PAIN LEVEL 7-10 04/04/17 21:30 Oxycodone/ Acetaminophen (Percocet (5/ 325)) 1 tab Q4H PRN PO PAIN LEVEL 4-6 04/04/17 21:30 Oxycodone/ Acetaminophen (Percocet (5/ 325)) 2 tab Q4H PRN PO PAIN LEVEL 7-10 04/04/17 21:30 Ibuprofen (Motrin) 600 mg Q6 PO 04/05/17 18:00 UNV Simethicone (Mylicon) 160 mg Q8H PRN PO DISTENSION/GAS/BLOATING 04/04/17 21:30 Senna/Docusate Sodium (Senokot-S) 1 tab BID PO 04/05/17 09:00 04/06/17 09:45 Lanolin (Eda-F-Puqfra) 1 applic BEDSIDE MEDICATION PRN TOP BEDSIDE FOR GIDEON TO NIPPLES 04/04/17 21:30 Diphtheria/ Tetanus/Acell Pertussis 0.5 ml 0.5 ml ONCE ONCE IM* 04/07/17 09:00 04/07/17 09:01 Oxytocin/Lactated Ringer's 500 ml @ 0 mls/hr ONCE PRN IV For Hemorrhage Management 04/04/17 21:30 Methylergonovine Maleate (Methergine) 0.2 mg ONCE PRN IM VAGINAL BLEEDING 04/04/17 21:30 Carboprost Tromethamine (Hemabate) 250 mcg ONCE PRN IM VAGINAL BLEEDING 04/04/17 21:30 Misoprostol 1000 mcg 1,000 mcg ONCE PRN [place] VAGINAL BLEEDING 04/04/17 21:30 Cefazolin Sodium 50 ml @ 100 mls/hr ONCE IVPB 04/04/17 21:30 04/04/17 21:38 DC Oxytocin/Lactated Ringer's 500 ml @ 125 mls/hr Q4H IV 04/04/17 21:17 04/06/17 07:36 DC 04/05/17 10:33 Ibuprofen 600 mg 600 mg Q6 PO 04/05/17 00:00 04/06/17 11:29 Cefazolin Sodium (Ancef 1 Gm/50 ml (Pmx)) 50 ml @ 100 mls/hr ONCE IVPB 04/05/17 01:00 04/05/17 01:29 DC 04/05/17 01:35 Patient is doing well, Ambulatory She is afebrile Abdomen is soft , Fundus is firm Moderate amount of lochia Breasts are soft, Nipples are intact No calf tenderness. Breast feeding the new born. Incision is clean is doing well TOO MENDOZA MD Apr 06, 2017 13:45
[2017-04-06 16:00] VITALS: BP 115/56; PULSE 88; RESP 18
[2017-04-06 20:15] VITALS: BP 120/76; PULSE 88; RESP 20
[2017-04-06] MEDS: ACETAMINOPHEN/CODEINE #3 TAB PO PRN (20:29)
[2017-04-07 04:00] VITALS: BP 106/54; PULSE 80; RESP 20
[2017-04-07] MEDS: IBUPROFEN 600 MG TAB PO SCH ×2 (05:58→11:49)
[2017-04-07 08:00] VITALS: BP 115/68; PULSE 85; RESP 18
[2017-04-07] MEDS ORDERED: DIPHTH/TET/ACEL PERTUSS (ADULT) 0.5 ML VIAL IM* ONE (09:00)
[2017-04-07] MEDS: SENNA/DOCUSATE NA (8.6MG/50MG) TAB PO SCH (09:13)
[2017-04-07] MEDS: ACETAMINOPHEN/CODEINE #3 TAB PO PRN (10:33)
--- NOTE | 2017-04-07 12:41 | PD.PPDC ---
[employer]ENT Discharge Instruction Condition Patient Condition: Good Diet Diet: Resume Regular Diet Activity/Restrictions Activity: Normal Activity May Shower Restrictions: No Exercising No Lifting No Driving No Sexual Activity Nothing in the Vagina No Villas No Tampons, douche Follow-up Follow-up with Physician: 2, Week/Weeks Provider Information: Appointment clinic in 2 weeks for check Return to clinic for STUMP BLOWER Instructions: Fever greater than 101 Chills Worsening abdominal pain Excessive Vaginal Bleeding More than 2 pads per hour Unable to tolerate diet OB Instructions: Breast Tenderness Depression Blurried Vision Headache DESIREE RIGGINS MD Apr 07, 2017 12:41
--- NOTE | 2017-04-07 12:45 | DS ---
Date/Time of Note Date/Time of Note DATE: 04/07/17 TIME: 12:42 Discharge Summary Admission/Discharge Info Admit Date/Time Apr 04, 2017 at 14:33 Discharge Date/Time April 07, 2017 at 1240 Final Diagnosis Date 3 post repeat Patient Condition: Good Procedures Repeat section, 36 weeks and 4 day in labor Hx of Present Illness 36 weeks plus gestation history of previous in labor Hospital Course Satisfactory uneventful Home Meds Reported Medications Multivit/Min/Fol Ac/Iron/Pren* ( S*) 1 Tab Tab, 1 TAB PO DAILY, TAB 03/15/17 Follow-up Plan Appointment clinic in 4 days to discontinue zachary patient received a prescription of analgesics recommended to make appointment to the office Primary Care Provider Erik Booth Time spent on discharge: > 30 minutes DESIREE RIGGINS MD Apr 07, 2017 12:45
== END 2017-04-07 15:10 | disposition home or self-care (01) | DRG 765 ==
LOC: OBT 14:08 → L-D 14:09 → OBT 14:29 → L-D 14:33 → PP1 21:07
PROVIDERS: ADMIT Obstetrics & Gynecology; ATTEND Obstetrics & Gynecology
PROC: 10D00Z1 Extraction of Products of Conception, Low, Open Approach (ICD-10-PCS; principal; 2017-04-04)
PROC: 3E00X4Z Introduction of Serum, Toxoid and Vaccine into Skin and Mucous Membranes, External Approach (ICD-10-PCS; 2017-04-07)
DX: O34.211 Maternal care for low transverse scar from previous cesarean delivery (principal); O60.14X0 Preterm labor third trimester with preterm delivery third trimester, not applicable or unspecified; O99.214 Obesity complicating childbirth; Z68.41 Body mass index [BMI] 40.0-44.9, adult; E66.01 Morbid (severe) obesity due to excess calories; Z23 Encounter for immunization; Z3A.36 36 weeks gestation of pregnancy; Z37.0 Single live birth
CPT/HCPCS: 76815; 76818; 85025; 85610; 85730; 86592; 86850; 86900; 86901; 90715; 94760; 99464; G0463; J0690; J1885; J2210; J2274; J2370; J2405; J2590; J2765; J3010; J7120

== ENCOUNTER 2018-09-16 19:22 | Emergency (ER) | END 2018-09-16 22:06 | disposition home or self-care (01) ==

== ENCOUNTER 2018-10-23 03:07 | Emergency (ER) | END 2018-10-23 05:15 | disposition home or self-care (01) ==

== ENCOUNTER 2019-01-11 15:13 | Emergency (ER) | payer OTHER ==
[~2019-01-11] VITALS: Wt 111.3 kg
[~2019-01-11 15:13] MED LIST changes: +ALBU8.5H8 INH; +AMOX1TAB10 PO; +AZIT250T PO; +BENZ-6 PO; +HYDR-3980 PO; +IBUP800T48 PO; +NAPR-985 PO; +PRED20TA PO
[2019-01-11 15:17] VITALS: BP 129/72; PULSE 82; RESP 16
[2019-01-11] MEDS ORDERED: IBUPROFEN 600 MG TAB PO ONE ×2 (16:00→16:30)
[2019-01-11] MEDS ORDERED: IBUP-1542 PO (17:17)
--- NOTE | 2019-01-11 23:18 | ERD ---
ER Documentation Chief Complaint Chief Complaint RIGHT FOOT PAIN X1 DAY HPI Patient is a 33-year-old female presents the ER for concerns of left foot pain times 1 day. Please note to see with triage note, patient's pain is on the left side. Patient denies any falls or trauma. Patient states yesterday she was standing in her kitchen when she felt a cramp going down her leg. Patient patient states the cramps resolved after she massaged her leg however she continues to have pain at the bottom of her left foot. Patient denies any falls or trauma. Patient denies any fevers or chills. Patient is able to ambulate however states it is painful. ROS All systems reviewed and are negative except as per history of present illness. Medications Home Meds Active Scripts Ibuprofen* (Motrin*) 600 Mg Tab, 600 MG PO Q6, #30 TAB Prov:LISA ECHEVERRIA PA-C 01/11/19 Ibuprofen* (Motrin*) 800 Mg Tab, 800 MG PO Q6H PRN for PAIN AND OR ELEVATED TEMP, #30 TAB Prov:RAUL CROUCH 10/23/18 Benzonatate* (Tessalon Perle*) 100 Mg Capsule, 100 MG PO Q8H PRN for COUGH, #20 CAP Prov:RAUL CROUCH 10/23/18 Albuterol Sulfate* (Proair HFA*) 8.5 Gm Hfa.aer.ad, 2 PUFF INH Q4H PRN for WHEEZING AND SOB, #1 INHALER Prov:RAUL CROUCH 10/23/18 Prednisone* (Prednisone*) 20 Mg Tab, 60 MG PO DAILY for 5 Days, TAB Prov:RAUL CROUCH 10/23/18 Azithromycin* (Zithromax*) 250 Mg Tablet, 250 MG PO .ZPACK DIRECTED, #6 TAB TAKE 500 MG (2 TABS) THE FIRST DAY THEN 250 MG (1 TAB) DAYS 2-5 Prov:RAUL CROUCH 10/23/18 Amoxicillin/Potassium Clav (Amox-Clav 875-125 mg Tablet) 875-125 mg Tab, 1 TAB PO BID for 10 Days, #20 TAB Prov:RAUL CROUCH 10/23/18 Naproxen* (Naprosyn*) 500 Mg Tablet, 500 MG PO BID PRN for PAIN AND/OR INFLAMMATION, #30 TAB Prov:ARIS HENLEYDavid SHELTON 09/16/18 Hydrocodone/Acetaminophen ([place] 10-325 Tablet) 1 Each Tablet, 1 TAB PO Q6H PRN for PAIN, #7 TAB Prov:ARIS HENLEYDavid SHELTON 09/16/18 Reported Medications Multivit/Min/Fol Ac/Iron/Pren* ( S*) 1 Tab Tab, 1 TAB PO DAILY, TAB 03/15/17 Allergies Allergies: Coded Allergies: magnesium (Verified Allergy, Unknown, UNABLE TO BREATH, 04/04/17) PMhx/Soc History of Surgery: Yes (GALLBLADDER REMOVED) Anesthesia Reaction: No Hx Neurological Disorder: No Hx Respiratory Disorders: No Hx Cardiac Disorders: No Hx Psychiatric Problems: No Hx Miscellaneous Medical Probl: No Hx Alcohol Use: No Hx Substance Use: No Hx Tobacco Use: No FmHx Family History: No diabetes, No coronary disease, No other Physical Exam Vitals Vital Signs Date Temp Pulse Resp B/P (MAP) Pulse Ox O2 O2 Flow FiO2 Time Delivery Rate 01/11/19 98.5 82 16 129/72 97 15:17 (91) Physical Exam GENERAL: Well-developed, well-nourished female. Appears in no acute distress. HEAD: Normocephalic, atraumatic. EYES: Pupils are equally reactive bilaterally. EOMs grossly intact. No conjunctival erythema. ENT: Moist mucous membranes. No uvula deviation. No kissing tonsils. NECK: Supple. No meningismus. Normal range of motion of the neck. LUNG: No respiratory distress EXTREMITIES: Equal pulses bilaterally. No peripheral clubbing, cyanosis or edema. No unilateral leg swelling. NEUROLOGIC: Alert and oriented. Moving all four extremities without any difficulty. Normal speech. Steady gait. SKIN: Normal color. Warm and dry. No rashes or lesions. Results 24 hrs Laboratory Tests Test 01/11/19 16:04 POC Beta HCG, Qualitative NEGATIVE Current Medications Medications Dose Sig/[place] Start Time Status Last (Trade) Ordered Route PRN Stop Time Admin Dose Reason Admin Ibuprofen 600 mg ONCE ONCE 01/11/19 DC 01/11/19 (Motrin) PO 16:00 16:04 01/11/19 16:10 Ibuprofen 600 mg ONCE ONCE 01/11/19 DC (Motrin) PO 16:30 01/11/19 16:31 Procedures/MDM ED COURSE: The patient was stable throughout ED course. I kept the patient and/or family informed of laboratory and diagnostic imaging results throughout the ED course. DIAGNOSTIC IMAGING: Read by radiologist. Patient: CHULA BAE : 1985 Age: 33 Sex: F MR #: [id number] DOS: 01/11/19 1559 Ordering MD: LISA ECHEVERRIA PA-C Location: [facility] Room/Bed: PROCEDURE: XR Left Ankle. CLINICAL INDICATION: Ankle pain TECHNIQUE: AP, oblique and lateral views of the left ankle were performed. 3 images COMPARISON: None. FINDINGS: Fractures: None. Joint spaces: Maintained. Lytic, blastic, or a erosive lesions: None. Bony alignment: Normal. Calcaneal spurs: Small plantar and tiny posterior calcaneal spur Arterial calcifications: None. Soft tissue swelling: None. IMPRESSION: 1. Small calcaneal spurs, otherwise radiographically unremarkable left ankle. RPTAT:AAJJ Physician Hayley Date Time Electronically viewed and signed by Physician Hayley on 01/11/2019 17:04 GW/ CC: LISA ECHEVERRIA PA-C [id number] DIAGNOSTIC IMAGING REPORT Patient: CHULA BAE : 1985 Age: 33 Sex: F MR #: [id number] DOS: 01/11/19 1559 Ordering MD: LISA ECHEVERRIA PA-C Location: [facility] Room/Bed: PROCEDURE: XR Left Foot. CLINICAL INDICATION: Left foot pain TECHNIQUE: AP, lateral and oblique views of the left foot was obtained. The images were reviewed on a PACS workstation. 3 images COMPARISON: None. FINDINGS: Fractures: None. Lytic, blastic, or a erosive lesions: None. Bony alignment: Normal. Joint spaces: Normal. Calcaneal spurs: Small, plantar Arterial calcifications: None. Soft tissue swelling: None. IMPRESSION: 1. Small plantar calcaneal spur, otherwise radiographically unremarkable left foot RPTAT:AAJJ Physician Hayley Date Time Electronically viewed and signed by Physician Hayley on 01/11/2019 17:03 GW/ CC: LISA ECHEVERRIA PA-C [id number] PROCEDURES: SPLINT APPLICATION: The patient was verbally consented at bedside prior to splint application. Patient was explained the risks, benefits and alternatives to this procedure. The patient was neurovascularly intact prior to and status post application of the splint. The patient tolerated the procedure well with no complications. Splint type: ARTEM wrap Extremity: left Indication: heel spur MEDICAL DECISION MAKING: This is a 33-year-old female presents ER for concerns of left foot pain times 1 day.. Vital signs were reviewed. Patient was afebrile. X-ray imaging was concerning for heel spur. Patient was given Artem wrap for co mfort measures. 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 Low suspicion for fracture, dislocation, phalangeal fractur, gout, septic joint, reactive arthritis, psoriatic arthritis, DVT, compartment syndrome, plantar fasciitis, diabetic neuropathy or pes planus. At this time, unable to rule out any tendon and ligament injuries. PRESCRIPTIONS: Ibuprofen DISCHARGE: At this time, patient is stable for discharge and outpatient management. RICE therapy and ROM exercises were advised to avoid stiffness. I have instructed the patient to follow-up with his/her primary care physician in 1-2 days. I have discussed with the patient the possibility of needing to see an email production specialist for further workup and imaging if the pain persists. I have instructed the patient to promptly return to the ER for any new or worsening symptoms including increased pain, swelling, redness, warmth or fever. The patient and/or family expressed understanding of and agreement with this plan. All questions were answered. Home care instructions were provided. Disclaimer: Inadvertent spelling and grammatical errors are likely due to EHR/dictation software use and do not reflect on the overall quality of patient care. Also, please note that the electronic time recorded on this note does not necessarily reflect the actual time of the patient encounter. Departure Diagnosis: Primary Impression: Heel spur Laterality: left Qualified Codes: M77.32 - Calcaneal spur, left foot Condition: Fair Patient Instructions: Heel Spur Additional Instructions: Call your primary care doctor TOMORROW for an appointment during the next 1-2 days.See the doctor sooner or return here if your condition worsens before your appointment time. LISA ECHEVERRIA PA-C Jan 11, 2019 23:18
== END 2019-01-11 17:35 | disposition home or self-care (01) ==
LOC: FTE 15:13
DX: M77.32 Calcaneal spur, left foot (principal)
CPT/HCPCS: 73610; 73630; 81025; Z7610